=== PATIENT | male | born 1965 | race Caucasian/White ===

== ENCOUNTER → 2018-08-15 06:54 | Outpatient (CLI) | payer BC, SELFPAY ==
[2018-08-15 08:33] LABS: Absolute Lymphocyte Count 1.31 X10^3/ul (0.83-4.51); Absolute Neutrophil Count 4.7 X10^3/uL (2.0-7.7); Basophil% 0.3 % (0-1); Eosinophils% 1.3 % (0-5); Hematocrit 43.4 % (40-54); Hemoglobin 15.6 g/dl (13.0-16.5); Lymphocyte # 1.31 X10^3/ul (4.0); Lymphocyte % 19.2 % (19-41); Mean Corp Hgb Conc 35.9 g/gl (32-36); Mean Corpuscular Hgb 32.5 pg (27.0-32.0); Mean Corpuscular Volume 90.4 fL (80-94); Mean Platelet Vol. 9.2 fl (6.2-12.0); Monocyte# 0.67 X10^3/uL; Monocyte% 9.8 % (0-10); Neutrophil % 69.1 % (47-70); Platelet Count 206 K/mm3 (150-450); RBC Distribution Width CV 12.6 % (11.6-14.6); RBC Distribution Width SD 41.5 fl (35.1-43.9); White Blood Count 6.8 K/mm3 (4.4-11.0)
[2018-08-15 08:34] LABS: Basophil# 0.02 X10^3/uL; Eosinophil# 0.09 X10^3/uL
[2018-08-15 08:35] LABS: POSITIVE COUNT NO; POSITIVE DIFFERENTIAL NO; POSITIVE MORPHOLOGY NO
[2018-08-15 09:16] LABS: ALB/GLOB Ratio 1.1 RATIO (0.9-2.4); AST(SGOT) 27 U/L (15-37); Alanine Aminotransfer ALT/SGPT 38 U/L (16-61); Alkaline Phosphatase 76 U/L (45-117); Anion Gap 11 (5-15); BUN 9 mg/dL (7-18); Calcium,Total 8.7 mg/dL (8.5-10.1); Chloride 93 mmol/L (98-107); Cholesterol 171 mg/dL (200); EST Glomerular Filtration Rate 93 mL/min (>60); Est Glom Filt Rate - Afr Amer 113 mL/min (>60); Globulin 3.7 g/dL (2.2-4.2); Glucose 81 mg/dL (74-106); High Density Lipoprotein 47 mg/dL; PSA,Total - Annual Screen 1.43 ng/mL (0.00-4.00); Potassium 4.6 mmol/L (3.5-5.1); Protein, Total 7.7 g/dL (6.4-8.2); Sodium Level 130 mmol/L (136-145); Triglycerides 104 mg/dL; Very Low Density Lipoprotein 21 mg/dL (5-40)
== END ==
PROVIDERS: Family Provider Family Medicine; PCP Family Medicine; Referring Provider Family Medicine; Visit Provider Family Medicine
DX: Z00.01 Encounter for general adult medical examination with abnormal findings (principal); Z12.5 Encounter for screening for malignant neoplasm of prostate
CPT/HCPCS: 36415; 80053; 80061; 84153; 85025; G0103

== ENCOUNTER → 2019-06-04 | Outpatient (CLI) | payer BC, SELFPAY ==
[2019-03-27 08:35] VITALS: BMI 28.4
[2019-06-04 07:02] LABS: Absolute Lymphocyte Count 1.31 X10^3/uL (0.83-4.51); Absolute Neutrophil Count 3.8 X10^3/uL (2.0-7.7); Basophil# 0.05 X10^3/uL; Basophil% 0.9 % (0-1); Eosinophil# 0.11 X10^3/uL; Eosinophils% 1.9 % (0-5); Hematocrit 45.7 % (40-54); Hemoglobin 15.7 g/dL (13.0-16.5); Lymphocyte # 1.31 X10^3/ul (4.0); Lymphocyte % 22.5 % (19-41); Mean Corp Hgb Conc 34.4 g/dL (32-36); Mean Corpuscular Hgb 31.3 pg (27.0-32.0); Mean Corpuscular Volume 91.2 fL (80-94); Mean Platelet Vol. 8.9 fl (6.2-12.0); Monocyte# 0.57 X10^3/uL; Monocyte% 9.8 % (0-10); NRBC Flagged by Analyzer 0 % (0-5); Neutrophil # 3.76 X10^3/uL (2.7-7.7); Neutrophil % 64.7 % (47-70); Platelet Count 209 K/mm3 (150-450); RBC Distribution Width CV 12.5 % (11.6-14.6); Red Blood Count 5.01 M/mm3 (4.6-6.2); White Blood Count 5.8 K/mm3 (4.4-11.0)
[2019-06-04 07:17] LABS: ALB/GLOB Ratio 1.1 RATIO (0.9-2.4); AST(SGOT) 24 U/L (15-37); Alanine Aminotransfer ALT/SGPT 39 U/L (16-61); Albumin, Serum 4.1 g/dL (3.2-5.0); Alkaline Phosphatase 77 U/L (45-117); Anion Gap 9 (5-15); BUN 9 mg/dL (7-18); BUN/Creat Ratio 8.9 RATIO (10-20); Chloride 94 mmol/L (98-107); Cholesterol 185 mg/dL (200); Creatinine, Serum 1.01 mg/dL (0.70-1.30); EST Glomerular Filtration Rate 81 mL/min (>60); Est Glom Filt Rate - Afr Amer 99 mL/min (>60); Globulin 3.7 g/dL (2.2-4.2); Glucose 99 mg/dL (74-106); High Density Lipoprotein 57 mg/dL; Potassium 4.4 mmol/L (3.5-5.1); Protein, Total 7.8 g/dL (6.4-8.2); Sodium Level 130 mmol/L (136-145); Triglycerides 125 mg/dL; Very Low Density Lipoprotein 25 mg/dL (5-40)
== END | disposition home or self-care (01) ==
LOC: LAB.FUTURE 06:35
PROVIDERS: Family Provider Family Medicine; PCP Family Medicine; Referring Provider Family Medicine; Visit Provider Family Medicine
DX: Z00.00 Encounter for general adult medical examination without abnormal findings (principal)
CPT/HCPCS: 36415; 80053; 80061; 85025

== ENCOUNTER → 2019-08-13 07:37 | Outpatient (CLI) | payer BC, SELFPAY ==
[2019-03-27 08:35] VITALS: BMI 28.4
--- NOTE | 2019-08-13 08:41 | NEURO_ITS ---
NCS and/or EMG Patient Report HPI: Patient is a 54-year-old male presented with numbness, tingling and pain in left arm and fingers. It is somewhat positional but not allways. It has been present for about a year. Patient has a history of cervical neck pain with a cervical disc replacement in 2015 for similar symptoms. He is not diabetic. Patient had cervical fusion at C5-C6 and C6-C7 in 2015. Patient also complains of left shoulder pain and feels that his left arm is weak. 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 Physical Exam: Mild tenderness at left wrist. Tinel sign slightly positive at left wrist. No significant atrophy of thenar or hypothenar muscles noted. Cervical spasm and tenderness noted on the left side> Range of motion is within normal limits at cervical spine. Mild left shoulder tenderness. ROM within normal limits at left shoulder but associated with the pain. Mild sensory deficit in left hand fingers noted. Findings: 1. There is evidence of prolongation of distal latencies of left median sensory and motor nerves responses. 2. Normal ulnar nerve conduction studies. 3. Normal needle examination of the left upper extremity including left cervical paraspinal muscles. Impression: 1. Findings are consistent with moderately severe median mononeuropathy at wrist due to carpal tunnel syndrome. 2. No electrodiagnostic evidence of cervical radiculopathy, brachial plexopathy or ulnar neuropathy in left upper extremity. Recommendation: 1. Patient recommended to wear left hand splint and avoid repetitive use of left hand as much as possible. 2. Patient may need surgical release of left carpal tunnel syndrome if symptoms continues. 3. Patient recommended to follow up with his PCP for left cervical and left shoulder pain.
== END ==
PROVIDERS: Family Provider Family Medicine; PCP Family Medicine; Referring Provider Family Medicine; Visit Provider Family Medicine
DX: R20.2 Paresthesia of skin (principal)
CPT/HCPCS: 95886; 95908

== ENCOUNTER → 2020-04-18 11:58 | Outpatient (CLI) | payer BC, SELFPAY ==
[2019-12-06 09:42] VITALS: BMI 28.4
[2020-04-18 15:02] LABS: Absolute Lymphocyte Count 1.24 X10^3/uL (0.83-4.51); Absolute Neutrophil Count 3.8 X10^3/uL (2.0-7.7); Basophil# 0.05 X10^3/uL; Basophil% 0.9 % (0-1); Eosinophil# 0.08 X10^3/uL; Eosinophils% 1.4 % (0-5); Hemoglobin 15.6 g/dL (13.0-16.5); Lymphocyte # 1.24 X10^3/ul (4.0); Lymphocyte % 21.1 % (19-41); Mean Corp Hgb Conc 34.7 g/dL (32-36); Mean Corpuscular Hgb 31.8 pg (27.0-32.0); Mean Corpuscular Volume 91.8 fL (80-94); Mean Platelet Vol. 9.1 fl (6.2-12.0); Monocyte# 0.66 X10^3/uL; Monocyte% 11.2 % (0-10); NRBC Flagged by Analyzer 0 % (0-5); Neutrophil # 3.82 X10^3/uL (2.7-7.7); Neutrophil % 65.1 % (47-70); Platelet Count 212 K/mm3 (150-450); RBC Distribution Width CV 12.9 % (11.6-14.6); White Blood Count 5.9 K/mm3 (4.4-11.0)
[2020-04-18 15:15] LABS: AST(SGOT) 18 U/L (15-37); Alanine Aminotransfer ALT/SGPT 31 U/L (16-61); Albumin, Serum 3.9 g/dL (3.2-5.0); Alkaline Phosphatase 76 U/L (45-117); Anion Gap 7 (5-15); BUN 16 mg/dL (7-18); BUN/Creat Ratio 13.2 RATIO (10-20); Calcium,Total 9.2 mg/dL (8.5-10.1); Chloride 97 mmol/L (98-107); Creatinine, Serum 1.21 mg/dL (0.70-1.30); EST Glomerular Filtration Rate 66 mL/min (>60); Est Glom Filt Rate - Afr Amer 80 mL/min (>60); Glucose 139 mg/dL (74-106); Potassium 4.3 mmol/L (3.5-5.1); Protein, Total 7.9 g/dL (6.4-8.2); Sodium Level 132 mmol/L (136-145)
== END ==
PROVIDERS: PCP Family Medicine; Visit Provider Family Medicine
DX: E87.1 Hypo-osmolality and hyponatremia (principal); I10 Essential (primary) hypertension
CPT/HCPCS: 36415; 80053; 85025

== ENCOUNTER → 2020-04-25 06:34 | Outpatient (CLI) | payer BC, SELFPAY ==
[2019-12-06 09:42] VITALS: BMI 28.4
--- NOTE | 2020-04-25 06:37 | CT_ITS ---
ACR Level 3 findings have been noted. An addendum which confirms receipt of the report will follow. STUDY: CT MAXILLOFACIAL SINUSES REASON FOR EXAM: Male, 55 years old. FAM HX OF BRAIN CANCER, CONSTANT COTTRELL, SINUS CONGESTION, HTN, CERVICAL FUSION RADIATION DOSAGE (If Supplied By Facility): CTDIvol = ( 41.01 ) mGy, DLP = ( 2447.88 ) mGycm TECHNIQUE: The patient was scanned in a multi detector CT scanner. High resolution axial imaging was performed without the administration of intravenous contrast material. Sagittal and coronal images were reconstructed. Individualized dose optimization techniques were used for this CT. COMPARISON: None. FINDINGS: FRONTAL SINUSES: Normal aeration, without mucosal inflammatory disease. ETHMOIDAL SINUSES: Normal aeration, without mucosal inflammatory disease. There is a fracture of the medial orbital wall on the right, likely chronic. MAXILLARY SINUSES: There is moderate mucosal thickening of the bilateral maxillary sinuses. Additionally there is an air-fluid level of the left maxillary sinus, consistent with acute sinus disease. SPHENOIDAL SINUSES: Normal aeration, without mucosal inflammatory disease. There is obstruction of the bilateral maxillary infundibuli with normal uncinate processes, ethmoid bullae, and hiatus semilunaris. Normal bilateral middle turbinates. Normal bilateral inferior turbinates. There is a right sided nasal septal deviation with a right sided nasal septal spur. There is patency of the bilateral nasal airways. CT/Sinus/Facial Bone IMPRESSION: Acute on chronic sinus disease. Electronically Signed: Flaco Grady MD at 12:52 EDT Tel , Service support ,
--- NOTE | 2020-04-25 06:37 | CT_ITS ---
STUDY: CT BRAIN WITH AND WITHOUT CONTRAST REASON FOR EXAM: Male, 55 years old. FAM HX OF BRAIN CANCER, CONSTANT COTTRELL, SINUS CONGESTION, HTN, CERVICAL FUSION RADIATION DOSAGE (If Supplied By Facility): CTDIvol = ( 41.01 ) mGy, DLP = ( 2447.88 ) mGycm TECHNIQUE: Transaxial CT imaging of the brain was performed pre and post contrast administration. The examination was performed with intravenous administration of IV 50mL Isovue-370. Individualized dose optimization techniques were used for this CT. COMPARISON: None. FINDINGS: Normal soft tissue structures. Normal calvarium. Normal size ventricles and extra-axial spaces for the patient''s age. Normal white matter tracts of the cerebral hemispheres. Normal basal ganglia and thalami. Normal brainstem. Normal cerebellum. There is no intracranial hemorrhage. There are no findings of an acute ischemic infarction. There is moderate paranasal sinus disease. Please see dedicated CT of the sinuses. CT/Brain/Head W/WO Contrast IMPRESSION: Unremarkable unenhanced and enhanced CT scan of the brain. Electronically Signed: Flaco Grady MD at 12:43 EDT Tel , Service support ,
== END ==
PROVIDERS: PCP Family Medicine; Referring Provider Family Medicine; Visit Provider Family Medicine
DX: R51 Headache (principal); R55 Syncope and collapse; J32.9 Chronic sinusitis, unspecified; H53.8 Other visual disturbances
CPT/HCPCS: 70470; 70486; Q9967

== ENCOUNTER → 2020-07-28 05:56 | Outpatient (CLI) | payer BC, SELFPAY ==
[2020-07-11 08:00] VITALS: BMI 28.4
[2020-07-28 07:22] LABS: Absolute Lymphocyte Count 0.96 X10^3/uL (0.83-4.51); Absolute Neutrophil Count 5.3 X10^3/uL (2.0-7.7); Basophil# 0.03 X10^3/uL; Basophil% 0.4 % (0-1); Eosinophil# 0.08 X10^3/uL; Eosinophils% 1.1 % (0-5); Hematocrit 45.5 % (40-54); Hemoglobin 15.6 g/dL (13.0-16.5); Lymphocyte # 0.96 X10^3/ul (4.0); Lymphocyte % 13.5 % (19-41); Mean Corp Hgb Conc 34.3 g/dL (32-36); Mean Corpuscular Hgb 32.3 pg (27.0-32.0); Mean Corpuscular Volume 94.2 fL (80-94); Mean Platelet Vol. 9.2 fl (6.2-12.0); Monocyte# 0.75 X10^3/uL; Monocyte% 10.5 % (0-10); NRBC Flagged by Analyzer 0 % (0-5); Neutrophil # 5.28 X10^3/uL (2.7-7.7); Neutrophil % 74.2 % (47-70); Platelet Count 174 K/mm3 (150-450); RBC Distribution Width CV 12.6 % (11.6-14.6); RBC Distribution Width SD 43.8 fl (35.1-43.9); Red Blood Count 4.83 M/mm3 (4.6-6.2); White Blood Count 7.1 K/mm3 (4.4-11.0)
[2020-07-28 07:39] LABS: Hemoglobin A1c 5.4 % (3.8-5.6)
[2020-07-28 08:07] LABS: ALB/GLOB Ratio 0.9 RATIO (0.9-2.4); AST(SGOT) 26 U/L (15-37); Alanine Aminotransfer ALT/SGPT 31 U/L (16-61); Albumin, Serum 3.8 g/dL (3.2-5.0); Alkaline Phosphatase 69 U/L (45-117); Anion Gap 5 (5-15); BUN 12 mg/dL (7-18); BUN/Creat Ratio 10.8 RATIO (10-20); Calcium,Total 9.1 mg/dL (8.5-10.1); Chloride 95 mmol/L (98-107); Cholesterol 219 mg/dL (200); Creatinine, Serum 1.11 mg/dL (0.70-1.30); EST Glomerular Filtration Rate 73 mL/min (>60); Est Glom Filt Rate - Afr Amer 88 mL/min (>60); Globulin 4.1 g/dL (2.2-4.2); Glucose 98 mg/dL (74-106); High Density Lipoprotein 70 mg/dL; PSA,Total - Annual Screen 0.94 ng/mL (0.00-4.00); Potassium 4.4 mmol/L (3.5-5.1); Protein, Total 7.9 g/dL (6.4-8.2); Sodium Level 129 mmol/L (136-145); Thyroid Stim Hormone (TSH) 1.02 uIU/mL (0.358-3.74); Triglycerides 119 mg/dL; Very Low Density Lipoprotein 24 mg/dL (5-40)
== END ==
PROVIDERS: PCP Family Medicine; Referring Provider Family Medicine; Visit Provider Family Medicine
DX: Z00.00 Encounter for general adult medical examination without abnormal findings (principal); E78.1 Pure hyperglyceridemia; Z12.5 Encounter for screening for malignant neoplasm of prostate
CPT/HCPCS: 36415; 80053; 80061; 83036; 84153; 84443; 85025; G0103

== ENCOUNTER 2020-08-13 22:05 | Inpatient (IN) | payer BC, SELFPAY ==
[2020-07-11 08:00] VITALS: BMI 28.4
[2020-08-13 22:06] VITALS: BP 181/104; PULSE 93; RESP 15; TEMP 36.4; O2SAT 99; BMI 28.2
--- NOTE | 2020-08-13 22:06 | ED.RN ---
RN CALLED FOR EKG, PULLED OLD EKGS FOR
--- NOTE | 2020-08-13 22:10 | EKG12_ITS ---
Test Reason : CP Blood Pressure : / mmHG Vent. Rate : 095 BPM Atrial Rate : 095 BPM P-R Int : 174 ms QRS Dur : 072 ms QT Int : 336 ms P-R-T Axes : 067 082 059 degrees QTc Int : 422 ms Normal sinus rhythm Normal ECG Confirmed by KAYLIN OROPEZA, EL ([id number]), editor in chief newspaper ELLIS RESENDEZ ([id number]) on 08/15/2020 12:56:19 PM Referred By: LAST Confirmed By:EL EWING MD
--- NOTE | 2020-08-13 22:10 | RAD_ITS ---
STUDY: X-RAY CHEST REASON FOR EXAM: Male, 55 years old. Intermittent chest pain for 1 1/2 weeks. TECHNIQUE: Single AP portable view of the chest. COMPARISON: 10/24/2017. FINDINGS: The lungs are clear and expanded. There is no demonstrated pleural abnormality. Normal size heart. Normal mediastinum and anahi. Normal visualized pulmonary arteries. Normal visualized aortic arch and descending thoracic aorta. Normal visualized thoracic spine. Normal visualized ribs, clavicles, and shoulders. There is no demonstrated abnormality of the visualized soft tissue structures of the upper abdomen. RAD/Chest 1 View (Portable) IMPRESSION: Normal x-ray examination of the chest. Electronically Signed: Sujata Ventura MD at 22:59 EDT Tel , Service support ,
[2020-08-13 22:13] VITALS: O2SAT 98
[2020-08-13] MEDS: Aspirin 81 MG TAB.CHEW 324 MG PO (22:22)
[2020-08-13 22:27] LABS: Absolute Lymphocyte Count 1.69 X10^3/uL (0.83-4.51); Absolute Neutrophil Count 3.9 X10^3/uL (2.0-7.7); Basophil# 0.05 X10^3/uL; Basophil% 0.8 % (0-1); Eosinophil# 0.12 X10^3/uL; Eosinophils% 1.9 % (0-5); Hemoglobin 14.9 g/dL (13.0-16.5); Lymphocyte # 1.69 X10^3/ul (4.0); Mean Corp Hgb Conc 34.7 g/dL (32-36); Mean Corpuscular Hgb 32.3 pg (27.0-32.0); Mean Corpuscular Volume 93.3 fL (80-94); Monocyte# 0.53 X10^3/uL; Monocyte% 8.5 % (0-10); NRBC Flagged by Analyzer 0 % (0-5); Neutrophil # 3.86 X10^3/uL (2.7-7.7); Neutrophil % 61.5 % (47-70); Platelet Count 179 K/mm3 (150-450); RBC Distribution Width CV 12.6 % (11.6-14.6); RBC Distribution Width SD 43.2 fl (35.1-43.9); Red Blood Count 4.61 M/mm3 (4.6-6.2); White Blood Count 6.3 K/mm3 (4.4-11.0)
[2020-08-13 22:48] LABS: Anion Gap 10 (5-15); BUN 12 mg/dL (7-18); BUN/Creat Ratio 12.8 RATIO (10-20); Chloride 100 mmol/L (98-107); Creatinine, Serum 0.94 mg/dL (0.70-1.30); EST Glomerular Filtration Rate 89 mL/min (>60); Est Glom Filt Rate - Afr Amer 107 mL/min (>60); Estimated Creatinine Clearance 79.18 ml/min; Glucose 99 mg/dL (74-106); Potassium 3.9 mmol/L (3.5-5.1); Sodium Level 134 mmol/L (136-145)
--- NOTE | 2020-08-13 23:15 | ED.DCSUM_ITS ---
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 He reports that he has had increased dyspnea exertion over the past 3 weeks. Did not experience chest pain until 2 days ago. He had an episode while he was spl itting firewood that resolved after approximate 10 to 15 minutes rest. Patient reports at 9:00 this evening he was awakened from sleep by a burning substernal tightness with radiation into his neck and his left shoulder. Was 10 on 10 at worst and is 2 out of 10 currently. Is worsened by nothing. Is relieved by rest. He does report it made him short of breath. He denies any associated nausea, vomiting, or diaphoresis. Patient has a history of high blood pressure, tobacco use, and family history as his risk factors for coronary artery disease. He reports his last stress test was a while ago. He is never had a heart catheterization. Physical Examination: Vitals: Stable. Afebrile. General: Well-nourished and well-developed. Head: Normocephalic atraumatic. Neck: Supple, no lymphadenopathy. No JVD. Nontender. Cardiovascular: Regular rate and rhythm. No murmurs. Respiratory: No respiratory distress. Clear to auscultation bilaterally. Abdominal: Soft, nontender, nondistended, normal bowel sounds. No guarding, rebound, or peritoneal signs. Back: Nontender. Extremities: Nontender, no edema. Skin: Normal color, no rash. Neurologic: Alert and oriented ?3. Cranial nerves II through XII are intact. Normal strength and sensation. Psych: Normal affect. Test Results: EKG is sinus at [address] changes. Initial troponin 0 0.0 22. Chem-7 shows a sodium 134. CBC is normal. Clinical Impression(s) from Imaging Studies Chest X-Ray 08/13/20 22:10 IMPRESSION: Normal x-ray examination of the chest. Electronically Signed: Sujata Ventura MD at 22:59 EDT Tel , Service support , Emergency Department Course and Treatment: Patient was given aspirin p.o. He is resting comfortably and is chest pain-free at this time. Treatment Plan: Patient was discussed with Dr. Chino. He will be admitted the hospital for further evaluation and treatment. Disposition: Admitted in improved condition. Impression: 1. Chest pain. 2. SYLVIA score of 2. This note was generated with [employer] dictation software. It may contain incorrect words, spelling, and punctuation that were not noted in review of the chart prior to signing ED Disposition - Plan for ED Patient: Disposition: Acute Care Hospital [facility]
[2020-08-13 23:17] VITALS: BP 142/83; PULSE 78; RESP 18
--- NOTE | 2020-08-13 23:31 | HP.PCM_ITS ---
Problem List (1) Chest pain Status: Acute Qualifiers: Chest pain type: unspecified Qualified Code(s): R07.9 - Chest pain, unspecified (2) Tobacco use Status: Chronic (3) ETOH abuse Status: Chronic (4) COPD (chronic obstructive pulmonary disease) Status: Suspected Qualifiers: COPD type: unspecified COPD Qualified Code(s): J44.9 - Chronic obstructive pulmonary disease, unspecified (5) Hypertension Status: Chronic Qualifiers: Hypertension type: essential hypertension Qualified Code(s): I10 - Essential (primary) hypertension History of Present Illness Date of Admission: 08/13/20 Chief Complaint: Chest pain The patient is a 55 y/o M w/ PMHx: HTN, Chronic neck and back pain, Tobacco use, EtOH abuse who presents to the [facility] ED on 08/13/20 with history of ongoing intermittent chest pain x 1.5 weeks described as a burning/tightness sensation in the sternal region, worse with any exertion/increased activity prompting e ventual ED presentation in addition to exertional dyspnea and noted coming into the ED secondary to awakening secondary to chest pain on evening of day of presentation, noted to be severe 08/12 but improved upon ED presentation to 12/13. He denies any associated nausea, emesis or diaphoresis. Work-up in the ED included T 97.6, heart rate 93, BP initially 181/104 with improvement to 142/83, respiratory rate 15, 99% on room air, CBC unremarkable, BMP unremarkable aside sodium 134, troponin 0.022, chest x-ray with no acute cardiopulmonary findings, EKG with SR with nonspecific changes. In the ED patient ministered aspirin 324 mg p.o. x1. Past Medical History Past Medical History (Chronic Problems): Chronic Problems (Last Reviewed 07/11/20 @ 07:59 by Florencio Quiroga) Tobacco use (Chronic) ETOH abuse (Chronic) Hypertension (Chronic) Psoriatic arthritis (Chronic) Medical History: Medical History (Last Reviewed 07/11/20 @ 07:59 by Florencio Quiroga) Chronic neck and back pain M54.2, M54.9, G89.29 Hypertension I10 Allergies No Known Allergies Allergy (Verified 07/11/20 07:59) Home Medications: Ambulatory Orders Medication Instructions Recorded Lisinopril [Zestril] 20 mg PO DAILY 03/14/15 Surgical History: Surgical History (Last Reviewed 07/11/20 @ 07:59 by Florencio Quiroga) History of spinal surgery Z98.890 Surgical History: - - Neck surgery with anterior approach per patient description, left carpal tunnel surgery. Psychiatric History: No pertinent psych hx Lives: Spouse/ Significant Other Smoking Status: Current every day smoker - Patient with ongoing three-quarter to 1 pack/day cigarette tobacco usage since youth. Tobacco Use: Cigarettes Alcohol: Heavy - Patient with at least 6, 12 ounce beers daily. Drugs: None - *Family History Maternal History Items: Diabetes, - - Multiple sclerosis Paternal History Items: Heart Disease, Hypertension Review of Systems Constitutional: Reports: Fatigue. Denies: Anorexia, Chills, Fever, Malaise, Weakness, Weight Change HEENT: Denies: Head Aches, Sinus Congestion, Sinus Drainage Cardiovascular: Reports: Chest Pain, Chest Tightness. Denies: Chest Pressure, Light Headedness, Orthopnea, Palpitations, Syncope Respiratory: Reports: Shortness of Breath, Shortness of breath upon exertion, Wheezing. Denies: Cough, Shortness of breath at rest, Sputum production Gastrointestinal: Denies: Abdominal Pain, Nausea, Vomiting Genitourinary: Denies: Dysuria Musculoskeletal: Reports: Back Pain, Neck Pain. Denies: Joint Pain, Joint Tenderness Skin: Denies: Rash, Wounds Neurological: Denies: Numbness, Tingling, Focal weakness Psychiatric: Denies: Anxiety, Depression, Homicidal Ideations, Suicidal Ideatio ns Hematologic/ Lymphatic: Denies: Easy Bruising, Easy Bleeding VTE Information - Inpt Only VTE Present on Admission: No VTE Mechan Device Prophylaxis: SCD's VTE Pharm Prophylaxis ordered?: Yes Patient Problems: Active and Suspected Problems (Last Reviewed 07/11/20 @ 07:59 by Florencio Quiroga) COPD (chronic obstructive pulmonary disease) (Suspected) Subjective: Patient seated upright in the ED bed, notes resolution of prior chest discomfort, currently rated 0 out of 10. Objective: Physical Examination: General: awake, alert, oriented x 3 and cooperative, seated upright in the ED bed in no apparent distress, currently chest pain resolved. Skin: normal color, turgor, no icterus, cyanosis. HEENT: AT/NC, EOMI, PERRLA, MMM, no carotid bruits or JVD noted. Lungs: Diminished breath sounds, greater bases, moderate effort, end expiratory occasional wheezing noted, no obvious rales or rhonchi. Heart: Regular rate and rhythm; no gallop, rub audible. Abdomen: soft, NTTP, ND, normal BS, no HSM. Extremities: no cyanosis, clubbing, or edema. Neurological: patient awake, alert, oriented x 3; cognitive function intact; pupils equally reactive to light and accomodation; cranial nerves II-XII grossly normal, moving all 4 extremities, no focal deficits, strength mildly to moderately global decrease secondary to acute complaints. Psychiatric: affect appears fatigued otherwise normal, no acute evidence of depressive or anxiety feelings. - Physical Exam Vitals/I&O's: Vital Signs Temp Pulse Resp BP Pulse Ox 97.6 F L 78 18 142/83 H 98 08/13/20 22:06 08/13/20 23:17 08/13/20 23:17 08/13/20 23:17 08/13/20 22:13 Oxygen Flow Rate (L/min) 2 Oxygen Delivery Method Nasal Cannula Weight: 175 lb 0.752 oz Body Mass Index (BMI) 28.2 Laboratory Results 08/13/20 22:18: WBC 6.3, RBC 4.61, Hgb 14.9, Hct 43.0, MCV 93.3, MCH 32.3 H, MCHC 34.7, RDW Std Deviation 43.2, RDW Coeff of Padmini 12.6, Plt Count 179, MPV 9.0, Immature Gran % (Auto) 0.300, Neut % (Auto) 61.5, Lymph % (Auto) 27.0, [place] % (Auto) 8.5, Eos % (Auto) 1.9, Baso % (Auto) 0.8, Absolute Neuts (auto) 3.9, Absolute Lymphs (auto) 1.69, Nucleated RBC % 0 08/13/20 22:18: Sodium 134 L, Potassium 3.9, Chloride 100, Carbon Dioxide 24.0, Anion Gap 10, BUN 12, Creatinine 0.94, Estim Creat Clear Calc 79.18, Est GFR (MDRD) Af Amer 107, Est GFR (MDRD) Non-Af 89, BUN/Creatinine Ratio 12.8, Glucose 99, Calcium 9.0, Troponin I 0.022 Assessment/Plan All Active Problems (Last Reviewed 07/11/20 @ 07:59 by Florencio Quiroga) Left otitis media (Acute) Sinusitis, acute (Acute) URI (upper respiratory infection) (Acute) Chest pain (Acute) Left arm weakness (Acute) The patient is a 55 y/o M w/ PMHx: HTN, Chronic neck and back pain, Tobacco use, EtOH abuse who presents to the [facility] ED on 08/13/20 with history of ongoing intermittent chest pain x 1.5 weeks described as a burning/tightness sensation in the sternal region, worse with any exertion/increased activity prompting eventual ED presentation in addition to exertional dyspnea. 1. Chest Pain: EKG with SR with nonspecific changes, CXR w/ no acute cardiopulmonary findings, initial trop 0.022. Will admit to PCU, place on a monitored bed to assure no acute myocardial infarction with serial cardiac enzymes and EKGs. If repeat EKGs and cardiac enzyme trending remain unremarkable will pursue a.m. cardiac stress testing. Magnesium pending, FLP in AM. ASA, NG, morphine. 2. Hypertension: Initial ED presentation with elevated BP, improved, will continue home regimen including lisinopril with adjustments and additions as needed, PRN hydralazine. 3. EtOH Abuse: Patient notes routine consumption of 6 beers (12 ounce) per day. Will maintain on CIWA protocol, MVI, thiamine and folic acid. Will encourage safe sobriety with case management consultation for substance abuse education and information. UDS, EtOH level requested. 4. Chronic neck and back pain: Encourage continued outpatient follow-up. 5. Tobacco Abuse: Encouraged cessation, inpatient consultation per RT, NR if desired. 6. Suspected underlying chronic COPD: Diminished at bases, wheezing present, significant tobacco use history, discussed with patient and will placed on ATC DuoNeb therapy, PRN albuterol and recommended outpatient pulmonary function nataliia dies and follow-up with his primary care. 7. DVT prophylaxis: SCDs, Lovenox. OBSV E&M: [id number] Initial observation care L3
[2020-08-13 23:56] VITALS: BP 155/89; PULSE 87; RESP 16; TEMP 36.4
[2020-08-14] VITALS (20 sets, daily range): BP systolic 131–168; BP diastolic 68–107; PULSE 75–135; RESP 16–20; TEMP 36.3–37.1; O2SAT 94–100; BMI 27.3; BMI 27.4
--- NOTE | 2020-08-14 00:10 | EKG12_ITS ---
Test Reason : CP ADMIT Blood Pressure : / mmHG Vent. Rate : 075 BPM Atrial Rate : 075 BPM P-R Int : 168 ms QRS Dur : 074 ms QT Int : 360 ms P-R-T Axes : 075 084 062 degrees QTc Int : 402 ms Normal sinus rhythm Normal ECG When compared with ECG of 24-OCT-2017 12:14, No significant change was found Confirmed by GOMEZ OROPEZA, JOSÉ LUIS ([id number]), senior editor VENESSA PINEDA ([id number]) on 08/16/2020 11:28:44 AM Referred By: DR DUKES Confirmed By:ARNALDO DYER MD
[2020-08-14] MEDS: 0.9% Normal Saline 1,000 ML 100 ML IV ×2 (00:32→10:12)
[2020-08-14 02:21] LABS: Magnesium 2.3 mg/dL (1.6-2.6); Phosphorus 4.7 mg/dL (2.5-4.9)
[2020-08-14 04:17] LABS: Absolute Neutrophil Count 3.4 X10^3/uL (2.0-7.7); Basophil# 0.04 X10^3/uL; Basophil% 0.7 % (0-1); Eosinophil# 0.09 X10^3/uL; Eosinophils% 1.7 % (0-5); Hematocrit 42.3 % (40-54); Hemoglobin 14.3 g/dL (13.0-16.5); Lymphocyte % 24.3 % (19-41); Mean Corp Hgb Conc 33.8 g/dL (32-36); Mean Corpuscular Hgb 31.5 pg (27.0-32.0); Mean Corpuscular Volume 93.2 fL (80-94); Mean Platelet Vol. 8.9 fl (6.2-12.0); Monocyte# 0.48 X10^3/uL; NRBC Flagged by Analyzer 0 % (0-5); Neutrophil # 3.44 X10^3/uL (2.7-7.7); Neutrophil % 64.1 % (47-70); Platelet Count 162 K/mm3 (150-450); RBC Distribution Width CV 12.8 % (11.6-14.6); RBC Distribution Width SD 43.9 fl (35.1-43.9); Red Blood Count 4.54 M/mm3 (4.6-6.2); White Blood Count 5.4 K/mm3 (4.4-11.0)
[2020-08-14 04:35] LABS: AST(SGOT) 24 U/L (15-37); Alanine Aminotransfer ALT/SGPT 32 U/L (16-61); Albumin, Serum 3.6 g/dL (3.2-5.0); Alkaline Phosphatase 63 U/L (45-117); Anion Gap 6 (5-15); BUN 13 mg/dL (7-18); BUN/Creat Ratio 14.6 RATIO (10-20); Calcium,Total 8.8 mg/dL (8.5-10.1); Chloride 103 mmol/L (98-107); Cholesterol 213 mg/dL (200); Creatinine, Serum 0.89 mg/dL (0.70-1.30); EST Glomerular Filtration Rate 94 mL/min (>60); Est Glom Filt Rate - Afr Amer 114 mL/min (>60); Estimated Creatinine Clearance 83.63 ml/min; Globulin 3.5 g/dL (2.2-4.2); Glucose 115 mg/dL (74-106); High Density Lipoprotein 67 mg/dL; Potassium 4.4 mmol/L (3.5-5.1); Protein, Total 7.1 g/dL (6.4-8.2); Sodium Level 133 mmol/L (136-145); Triglycerides 160 mg/dL; Very Low Density Lipoprotein 32 mg/dL (5-40)
[2020-08-14 04:39] LABS: Amphetamine Urine VISTA NEGATIVE (<1000 ng/mL); Barbiturate Urine VISTA NEGATIVE (< 200 ng/mL); Benzodiazepine Urine VISTA NEGATIVE (< 200 ng/mL); Cocaine Urine VISTA NEGATIVE (< 300 ng/mL); Ecstacy Urine VISTA NEGATIVE (< 500 ng/mL); Methadone Urine VISTA NEGATIVE (< 300 ng/mL); PCP Urine VISTA NEGATIVE (< 25 ng/mL); THC Urine VISTA NEGATIVE (< 50 ng/mL); Vista UDS pH Range 6
--- NOTE | 2020-08-14 04:47 | ECHOD_ITS ---
Reason For Study: ARRHYTHMIA Procedure This was a 2D Doppler, Color Flow transthoracic echocardiogram. Exam performed portable in patient room. Left Ventricle Normal LV size. The estimated ejection fraction is 60 %. No evidence for diastolic dysfunction. No regional wall motion abnormalities noted. Right Ventricle Normal RV size. Normal systolic function. Atria Normal left atrium. Normal right atrium. No doppler evidence for ASD. Mitral Valve There is no mitral valve stenosis. Trivial mitral valve insufficiency. Tricuspid Valve There is no tricuspid stenosis. Trivial tricuspid valve insufficiency. Unable to estimate RV systolic pressure due to insufficient tricuspid regurgitant envelope. Aortic Valve Trisinus/trileaflet aortic valve. There is no aortic stenosis. No aortic valve insufficiency. Pulmonic Valve There is no pulmonic valvular stenosis. No pulmonic valve insufficiency. Great Vessels Normal aortic root. Pericardium/Pleural No pericardial effusion. MMode/2D Measurements & Calculations LVIDd: 4.3 cm IVSd: 1.1 cm Ao root diam: 3.4 cm LVIDs: 3.0 cm LVPWd: 1.1 cm RVDd: 3.0 cm FS: 30.2 % LAV(MOD-bp): 30.7 ml LVAd ap4: 26.7 cm2 SV(MOD-sp4): 47.6 ml LAV(MOD-bp) Indexed: 16.5 ml/m2 EDV(MOD-sp4): 75.9 ml LAV(MOD-sp2): 26.4 ml EDV(sp4-el): 79.0 ml LAV(MOD-sp4): 29.1 ml LVAs ap4: 14.9 cm2 ESV(MOD-sp4): 28.3 ml ESV(sp4-el): 29.4 ml EF(MOD-sp4): 62.8 % EF(sp4-el): 62.7 % SV(sp4-el): 49.5 ml LA A4 area: 13.0 cm2 RA A4 area: 14.4 cm2 Time Measurements MV dec time: 0.18 sec Doppler Measurements & Calculations MV E max william: 83.1 cm/sec Lat Peak E' William: 10.8 cm/sec Med Peak E' William: 9.2 cm/sec MV A max william: 92.2 cm/sec E/E' lat: 7.7 E/E' med: 9.1 MV E/A: 0.90 Ao V2 max: 111.5 cm/sec LV V1 max: 99.6 cm/sec PA V2 max: 71.1 cm/sec Ao max P.0 mmHg LV V1 max P.0 mmHg Interpretation Summary The estimated ejection fraction is 60 %. No evidence for diastolic dysfunction. Trivial mitral valve insufficiency. Ordering Physician: Chapis Chino Referring Physician: NIMA PHAN Performed By: Jena Kumari RDCS
[2020-08-14] MEDS: Aspirin E.C. 81 MG Tablet PO (06:12)
[2020-08-14] MEDS: Lisinopril 20 MG Tablet PO (06:12)
[2020-08-14 06:34] LABS: Partial Thromboplast Time 24.6 Seconds (24.1-36.2); Prothrombin Time (Protime)PT. 12.1 SECONDS (11.7-14.9)
[2020-08-14] MEDS: Enoxaparin 80 MG/0.8 ML Syringe SC (06:43)
[2020-08-14] MEDS: Ipratropium/Albuterol Sulfate 3 ML AMPUL.NEB INHALATION ×2 (07:09→19:41)
[2020-08-14] MEDS: Multivitamins,Ther W-Minerals Tablet 1 TABLET PO (09:13)
[2020-08-14] MEDS: Thiamine Hydrochloride 100 MG Tablet PO ×2 (09:13→17:10)
[2020-08-14] MEDS: Folic Acid 1 MG Tablet PO (09:13)
[2020-08-14] MEDS: Famotidine 20 MG Tablet PO ×2 (09:14→22:16)
--- NOTE | 2020-08-14 11:20 | CASEMGMT ---
SW met with patient as a referral was received for ETOH resources. SW introduced self and role at [facility]. He denied needing any resources for his alcohol consumption. Odalis REYNOLDS MSW
--- NOTE | 2020-08-14 13:17 | PN_ITS ---
<Maite Magallon REGIONAL EDUCATION COORDINATOR - Last Filed: 08/14/20 13:30> Patient Problems: Active and Suspected Problems (Last Reviewed 07/11/20 @ 07:59 by Florencio Quiroga) COPD (chronic obstructive pulmonary disease) (Suspected) Subjective: Patient seen and examined. Denies chest pain currently. States over the past couple months he has had shortness of breath and increased fatigue with activity. Plan for heart cath later today. Patient agreeable to plan. - Physical Exam Vitals/I&O's: Vital Signs Temp Pulse Resp BP Pulse Ox 98.6 F 88 20 H 153/86 H 94 08/14/20 06:07 08/14/20 07:09 08/14/20 07:09 08/14/20 06:07 08/14/20 07:09 Oxygen Flow Rate (L/min) 2 Oxygen Delivery Method Room Air Weight: 169 lb 12.095 oz Body Mass Index (BMI) 27.3 Intake and Output for Last 24 Hours 08/12/20 08/13/20 08/14/20 23:59 23:59 23:59 Intake Total 986.67 / 986.67 Balance 986.67 / 986.67 General: Alert, Oriented x3, Cooperative HEENT: Atraumatic, PERRLA, EOMI, Normocephalic Neck: Supple, No JVD, Negative Carotid Bruits Lungs: Clear to auscultation, Normal air movement Cardiovascular: Regular rate, No murmurs Abdomen: Bowel Sounds Present, Soft, Non Tender, Non-Distended Extremities: No clubbing, No cyanosis, No edema, Capillary Refill Less than 3 Seconds Skin: No rashes, No breakdown Musculoskeletal: No Tenderness to Palpation of Joints or Extremities Neurological: Cranial nerves II-XII grossly intact, Neuro grossly intact Psych/Mental Status: Normal Affect, Appropriate Laboratory Results 08/13/20 22:18: WBC 6.3, RBC 4.61, Hgb 14.9, Hct 43.0, MCV 93.3, MCH 32.3 H, MCHC 34.7, RDW Std Deviation 43.2, RDW Coeff of Padmini 12.6, Plt Count 179, MPV 9.0, Immature Gran % (Auto) 0.300, Neut % (Auto) 61.5, Lymph % (Auto) 27.0, Bonner % (Auto) 8.5, Eos % (Auto) 1.9, Baso % (Auto) 0.8, Absolute Neuts (auto) 3.9, Absolute Lymphs (auto) 1.69, Nucleated RBC % 0 08/13/20 22:18: Sodium 134 L, Potassium 3.9, Chloride 100, Carbon Dioxide 24.0, Anion Gap 10, BUN 12, Creatinine 0.94, Estim Creat Clear Calc 79.18, Est GFR (MDRD) Af Amer 107, Est GFR (MDRD) Non-Af 89, BUN/Creatinine Ratio 12.8, Glucose 99, Calcium 9.0, Troponin I 0.022 08/14/20 01:17: Phosphorus 4.7, Magnesium 2.3 08/14/20 01:17: Ethyl Alcohol 5.0 08/14/20 01:17: Troponin I 0.120 H 08/14/20 04:02: WBC 5.4, RBC 4.54 L, Hgb 14.3, Hct 42.3, MCV 93.2, MCH 31.5, MCHC 33.8, RDW Std Deviation 43.9, RDW Coeff of Padmini 12.8, Plt Count 162, MPV 8.9, Immature Gran % (Auto) 0.200, Neut % (Auto) 64.1, Lymph % (Auto) 24.3, Bonner % (Auto) 9.0, Eos % (Auto) 1.7, Baso % (Auto) 0.7, Absolute Neuts (auto) 3.4, Absolute Lymphs (auto) 1.30, Nucleated RBC % 0 08/14/20 04:02: Sodium 133 L, Potassium 4.4, Chloride 103, Carbon Dioxide 24.0, Anion Gap 6, BUN 13, Creatinine 0.89, Estim Creat Clear Calc 83.63, Est GFR (MDRD) Af Amer 114, Est GFR (MDRD) Non-Af 94, BUN/Creatinine Ratio 14.6, Glucose 115 H, Calcium 8.8, Total Bilirubin 0.40, AST 24, ALT 32, Alkaline Phosphatase 63, Troponin I 0.172 H, Total Protein 7.1, Albumin 3.6, Globulin 3.5, Albumin/Globulin Ratio 1.0, Triglycerides 160, Cholesterol 213 H, LDL Cholesterol 114, VLDL Cholesterol 32, HDL Cholesterol 67 08/14/20 04:19: Urine Opiates Screen NEGATIVE, Urine Methadone Screen NEGATIVE, Ur Barbiturates Screen NEGATIVE, Ur Phencyclidine Scrn NEGATIVE, Ur Amphetamines Screen NEGATIVE, U Methamphetamin-MDMA NEGATIVE, U Benzodiazepines Scrn NEGATIVE, Urine Cocaine Screen NEGATIVE, U Cannabinoids Screen NEGATIVE, Ur Drug Screen Comment 08/14/20 06:05: PT 12.1, INR 1.0, APTT 24.6 08/14/20 06:05: Troponin I 0.202 H Current Medications Acetaminophen (Tylenol) 650 mg PO Q6H PRN PRN PRN Reason: Pain Score 1-10/Temp > 100.7 F Al Hydroxide/Mg Hydroxide (Mylanta Ii) 30 ml PO Q6H PRN PRN PRN Reason: Gastric Burning Albuterol Sulfate (Ventolin Aerosols) 2.5 mg INHALATION Q2H PRN PRN PRN Reason: Dyspnea, wheezing Albuterol/Ipratropium (Duoneb) 3 ml INHALATION Q6HWA.RT [facility] Last Admin: 08/14/20 07:09 Dose: 3 ml Documented by: Aspirin (Ecotrin) 81 mg PO DAILY@0800 [facility] Last Admin: 08/14/20 06:12 Dose: 81 mg Documented by: Enoxaparin Sodium (Lovenox) 80 mg SC Q12@0600,1800 [facility] Last Admin: 08/14/20 06:43 Dose: 80 mg Documented by: Famotidine (Pepcid) 20 mg PO BID [facility] Last Admin: 08/14/20 09:14 Dose: 20 mg Documented by: Folic Acid (Folic Acid) 1 mg PO DAILY@0800 [facility] Stop: 08/16/20 08:01 Last Admin: 08/14/20 09:13 Dose: 1 mg Documented by: Guaifenesin (Robitussin) 20 ml PO Q4H PRN PRN PRN Reason: COUGH Sodium Chloride () 1,000 mls @ 100 mls/hr IV .Q10H [facility] Last Admin: 08/14/20 10:12 Dose: 100 mls/hr Documented by: Lisinopril (Zestril) 20 mg PO DAILY [facility] Last Admin: 08/14/20 06:12 Dose: 20 mg Documented by: Lorazepam (Ativan) 2 mg PO Q2H PRN PRN; Protocol PRN Reason: CIWA score > 8 but <15 Lorazepam (Ativan) 2 mg PO UD PRN; Protocol PRN Reason: CIWA score >/=15. Lorazepam (Ativan) 2 mg IV Q2H PRN PRN; Protocol PRN Reason: CIWA score > 8 but <15 Lorazepam (Ativan) 2 mg IV UD PRN; Protocol PRN Reason: CIWA score >/=15. Magnesium Hydroxide (Milk Of Magnesia) 30 ml PO DAILY PRN PRN PRN Reason: Constipation Morphine Sulfate () 2 mg IV Q3H PRN PRN PRN Reason: Pain Score 6-10 Multivitamins/Minerals (Multivitamin With Minerals ([facility])) [facility] Last Admin: 08/14/20 09:13 Dose: 1 tablet Documented by: Nitroglycerin (Nitrostat) 0.4 mg SUBLINGUAL Q5M PRN PRN Reason: CARDIAC/CHEST PAIN Ondansetron HCl (Zofran) 4 mg IV Q8H PRN PRN PRN Reason: NAUSEA/VOMITING Oxycodone HCl (Oxyir) 5 mg PO Q4H PRN PRN PRN Reason: Pain Score 4-5 Prochlorperazine Edisylate (Compazine Iv) 5 mg IV Q4H PRN PRN PRN Reason: Breakthrough Nausea/Vomiting Psyllium Hydrophilic Mucilloid (Metamucil) 1 packet PO DAILY PRN PRN PRN Reason: Constipation Senna/Docusate Sodium (Senokot-S, Martina-Colace) 2 tablet PO BID PRN PRN PRN Reason: Constipation Sodium Chloride () 10 - 40 ml IV UD PRN PRN Reason: SALINE FLUSH Temazepam (Restoril) 15 mg PO QHS PRN PRN PRN Reason: INSOMNIA Thiamine [facility] ([facility]amin B1) [facility] Stop: 08/16/20 17:01 Last Admin: 08/14/20 09:13 Dose: 100 mg Documented by: Throat Lozenges (Cepacol Sore Throat Lozenge) 1 lozenge MUCOUS MEM Q2H PRN PRN PRN Reason: SORE THROAT Medical Necessity - Tobacco Use Smoking Status: Current every day smoker Tobacco Use: Cigarettes Assessment/Plan All Active Problems (Last Reviewed 07/11/20 @ 07:59 by Florencio Quiroga) Left otitis media (Acute) Sinusitis, acute (Acute) URI (upper respiratory infection) (Acute) Chest pain (Acute) Left arm weakness (Acute) 1. Chest pain, abnormal troponin-cardiology consulted. Underwent heart cath with stent placement, cath report pending. Continue aspirin, Brilinta, initiated on statin. 2. Hypertension-stable, continue lisinopril regimen. 3. Tobacco dependence- encouraged cessation. 4. Suspected underlying COPD-given extensive tobacco use history. Recommend outpatient follow-up for pulmonary function test. 5. Alcohol dependence- CIWA, multivitamin, thiamine, folic acid supplementation. Patient declines [employer] consult. DVT prophylaxis-Lovenox This patient was seen by GEETA Valencia under the supervision of Dr. Ramirez. <Katerine Ramirez - Last Filed: 08/14/20 15:08> - Physical Exam Vitals/I&O's: Vital Signs Temp Pulse Resp BP Pulse Ox 98.8 F 91 18 146/101 H 97 08/14/20 13:58 08/14/20 13:58 08/14/20 13:58 08/14/20 13:58 08/14/20 13:58 Oxygen Flow Rate (L/min) 2 Oxygen Delivery Method Room Air Weight: 77 kg Body Mass Index (BMI) 27.3 Intake and Output for Last 24 Hours 08/12/20 08/13/20 08/14/20 23:59 23:59 23:59 Intake Total 986.67 / 986.67 Balance 986.67 / 986.67 Laboratory Results 08/13/20 22:18: WBC 6.3, RBC 4.61, Hgb 14.9, Hct 43.0, MCV 93.3, MCH 32.3 H, MCHC 34.7, RDW Std Deviation 43.2, RDW Coeff of Padmini 12.6, Plt Count 179, MPV 9.0, Immature Gran % (Auto) 0.300, Neut % (Auto) 61.5, Lymph % (Auto) 27.0, Bonner % (Auto) 8.5, Eos % (Auto) 1.9, Baso % (Auto) 0.8, Absolute Neuts (auto) 3.9, Absolute Lymphs (auto) 1.69, Nucleated RBC % 0 08/13/20 22:18: Sodium 134 L, Potassium 3.9, Chloride 100, Carbon Dioxide 24.0, Anion Gap 10, BUN 12, Creatinine 0.94, Estim Creat Clear Calc 79.18, Est GFR (MDRD) Af Amer 107, Est GFR (MDRD) Non-Af 89, BUN/Creatinine Ratio 12.8, Glucose 99, Calcium 9.0, Troponin I 0.022 08/14/20 01:17: Phosphorus 4.7, Magnesium 2.3 08/14/20 01:17: Ethyl Alcohol 5.0 08/14/20 01:17: Troponin I 0.120 H 08/14/20 04:02: WBC 5.4, RBC 4.54 L, Hgb 14.3, Hct 42.3, MCV 93.2, MCH 31.5, MCHC 33.8, RDW Std Deviation 43.9, RDW Coeff of Padmini 12.8, Plt Count 162, MPV 8.9, Immature Gran % (Auto) 0.200, Neut % (Auto) 64.1, Lymph % (Auto) 24.3, Bonner % (Auto) 9.0, Eos % (Auto) 1.7, Baso % (Auto) 0.7, Absolute Neuts (auto) 3.4, Absolute Lymphs (auto) 1.30, Nucleated RBC % 0 08/14/20 04:02: Sodium 133 L, Potassium 4.4, Chloride 103, Carbon Dioxide 24.0, Anion Gap 6, BUN 13, Creatinine 0.89, Estim Creat Clear Calc 83.63, Est GFR (MDRD) Af Amer 114, Est GFR (MDRD) Non-Af 94, BUN/Creatinine Ratio 14.6, Glucose 115 H, Calcium 8.8, Total Bilirubin 0.40, AST 24, ALT 32, Alkaline Phosphatase 63, Troponin I 0.172 H, Total Protein 7.1, Albumin 3.6, Globulin 3.5, Albumin/Globulin Ratio 1.0, Triglycerides 160, Cholesterol 213 H, LDL Cholesterol 114, VLDL Cholesterol 32, HDL Cholesterol 67 08/14/20 04:19: Urine Opiates Screen NEGATIVE, Urine Methadone Screen NEGATIVE, Ur Barbiturates Screen NEGATIVE, Ur Phencyclidine Scrn NEGATIVE, Ur Amphetamines Screen NEGATIVE, U Methamphetamin-MDMA NEGATIVE, U Benzodiazepines Scrn NEGATIVE, Urine Cocaine Screen NEGATIVE, U Cannabinoids Screen NEGATIVE, Ur Drug Screen Comment 08/14/20 06:05: PT 12.1, INR 1.0, APTT 24.6 08/14/20 06:05: Troponin I 0.202 H Current Medications Acetaminophen (Tylenol) 650 mg PO Q6H PRN PRN PRN Reason: Pain Score 1-10/Temp > 100.7 F Al Hydroxide/Mg Hydroxide (Mylanta Ii) 30 ml PO Q6H PRN PRN PRN Reason: Gastric Burning Albuterol Sulfate (Ventolin Aerosols) 2.5 mg INHALATION Q2H PRN PRN PRN Reason: Dyspnea, wheezing Albuterol/Ipratropium (Duoneb) 3 ml INHALATION Q6HWA.RT [facility] Last Admin: 08/14/20 07:09 Dose: 3 ml Documented by: Aspirin (Ecotrin) 81 mg PO DAILY@0800 [facility] Last Admin: 08/14/20 06:12 Dose: 81 mg Documented by: Atorvastatin Calcium (Lipitor) 20 mg PO QHS [facility] Atropine Sulfate () 0.5 mg IV UD PRN PRN Reason: HR <50 bpm Famotidine (Pepcid) 20 mg PO BID [facility] Last Admin: 08/14/20 09:14 Dose: 20 mg Documented by: Folic Acid (Folic Acid) 1 mg PO DAILY@0800 [facility] Stop: 08/16/20 08:01 Last Admin: 08/14/20 09:13 Dose: 1 mg Documented by: Guaifenesin (Robitussin) 20 ml PO Q4H PRN PRN PRN Reason: COUGH Heparin Sodium (Beef Lung) (Heparin 500 Unit/5 Ml (100/Ml)) 500 unit IV UD PRN PRN Reason: HEPARIN FLUSH Sodium Chloride () 1,000 mls @ 100 mls/hr IV .Q10H [facility] Last Admin: 08/14/20 10:12 Dose: 100 mls/hr Documented by: Sodium Chloride () 1,000 mls @ 60 mls/hr IV .[id number] [facility] Last Admin: 08/14/20 13:56 Dose: 60 mls/hr Documented by: Labetalol HCl (Trandate) 5 mg IV X1 PRN PRN Reason: SBP >160 when pulling sheath Stop: 08/16/20 13:28 Lisinopril (Zestril) 20 mg PO DAILY [facility] Last Admin: 08/14/20 06:12 Dose: 20 mg Documented by: Lorazepam (Ativan) 2 mg PO Q2H PRN PRN; Protocol PRN Reason: CIWA score > 8 but <15 Lorazepam (Ativan) 2 mg PO UD PRN; Protocol PRN Reason: CIWA score >/=15. Lorazepam (Ativan) 2 mg IV Q2H PRN PRN; Protocol PRN Reason: CIWA score > 8 but <15 Lorazepam (Ativan) 2 mg IV UD PRN; Protocol PRN Reason: CIWA score >/=15. Magnesium Hydroxide (Milk Of Magnesia) 30 ml PO DAILY PRN PRN PRN Reason: Constipation Morphine Sulfate () 2 mg IV Q3H PRN PRN PRN Reason: Pain Score 6-10 Multivitamins/Minerals (Multivitamin With Minerals (Bkc)) [facility] Last Admin: 08/14/20 09:13 Dose: 1 tablet Documented by: Nitroglycerin (Nitrostat) 0.4 mg SUBLINGUAL Q5M PRN PRN Reason: CARDIAC/CHEST PAIN Ondansetron HCl (Zofran) 4 mg IV Q8H PRN PRN PRN Reason: NAUSEA/VOMITING Oxycodone HCl (Oxyir) 5 mg PO Q4H PRN PRN PRN Reason: Pain Score 4-5 Prochlorperazine Edisylate (Compazine Iv) 5 mg IV Q4H PRN PRN PRN Reason: Breakthrough Nausea/Vomiting Psyllium Hydrophilic Mucilloid (Metamucil) 1 packet PO DAILY PRN PRN PRN Reason: Constipation Senna/Docusate Sodium (Senokot-S, Martina-Colace) 2 tablet PO BID PRN PRN PRN Reason: Constipation Sodium Chloride () 10 - 40 ml IV UD PRN PRN Reason: SALINE FLUSH Sodium Chloride () 500 ml IV BOLUS PRN PRN Reason: VASO-VAGAL PROTOCOL Temazepam (Restoril) 15 mg PO QHS PRN PRN PRN Reason: INSOMNIA Thiamine HCl (Vitamin B1) [facility] Stop: 08/16/20 17:01 Last Admin: 08/14/20 09:13 Dose: 100 mg Documented by: Throat Lozenges (Cepacol Sore Throat Lozenge) 1 lozenge MUCOUS MEM Q2H PRN PRN PRN Reason: SORE THROAT Ticagrelor (Brilinta) 90 mg PO BID MG Assessment/Plan This patient was seen in conjunction with Maite Magallon NP. I have independently interviewed and examined the patient and reviewed pertinent his torical, laboratory, and other data. Please refer to her note for patient's presentation, findings, and recommendations. Patient was seen and examined. He denied any chest pain. His troponins peaked at 0.202. Cardiology was consulted. Patient underwent cardiac catheterization with stent placed in the left circumflex. No acute events overnight. Vitals were reviewed -stable Physical Exam: Gen: Comfortable, not pale, not jaundiced, alert oriented x3 CVS:HS I +II, regular, no murmurs RESP: Diminished at lung bases GI: BS present and normal, nontender, no palpable organs EXT:No edema Labs reviewed: ASSESSMENT: 1. Chest pain, atypical 2. Hypertension 3. Nicotine dependence 4. Alcohol dependence Meds reviewed Plan: Continue per cardiology recommendations Continue to monitor for alcohol and nicotine withdrawal Inpatient E&M: [id number] [facility] Hosp L3
--- NOTE | 2020-08-14 13:30 | EKG12_ITS ---
Test Reason : AM EKG Blood Pressure : / mmHG Vent. Rate : 071 BPM Atrial Rate : 071 BPM P-R Int : 160 ms QRS Dur : 070 ms QT Int : 382 ms P-R-T Axes : 069 075 053 degrees QTc Int : 415 ms Normal sinus rhythm Normal ECG Confirmed by KAYLIN OROPEZA, EL ([id number]), supervising editor trailer VENESSA PINEDA ([id number]) on 08/17/2020 10:21:04 AM Referred By: PETER Confirmed By:EL EWING MD
[2020-08-14] MEDS: 0.9% Normal Saline 1,000 ML 60 ML IV (13:56)
--- NOTE | 2020-08-14 14:35 | PCM.CONS.C ---
Reason for Consult Date of Consultation: 08/14/20 Reason for Consultation: chest pain History of Present Illness: The patient is a 55 y/o M w/ PMHx: HTN, Chronic neck and back pain, Tobacco use, EtOH abuse who presents to the [facility] ED on 08/13/20 with history of ongoing intermittent chest pain x 1.5 weeks described as a burning/tightness sensation in the sternal region, worse with any exertion/increased activity prompting eventual ED presentation in addition to exertional dyspnea and noted coming into the ED secondary to awakening secondary to chest pain on evening of day of presentation, noted to be severe 08/12 but improved upon ED presentation to 12/13. He denies any associated nausea, emesis or diaphoresis. Work-up in the ED included T 97.6, heart rate 93, BP initially 181/104 with improvement to 142/83, respiratory rate 15, 99% on room air, CBC unremarkable, BMP unremarkable aside sodium 134, troponin 0.022. ROS: All systems reviewed. All else is negative except that in the HPI. Past Medical History Allergies/Adverse Reactions: Allergies No Known Allergies Allergy (Verified 07/11/20 07:59) Home Medications: Ambulatory Orders Medication Instructions Recorded Lisinopril [Zestril] 20 mg PO DAILY 03/14/15 Past Medical History (Chronic Problems): Chronic Problems (Last Reviewed 07/11/20 @ 07:59 by Florencio Quiroga) Tobacco use (Chronic) ETOH abuse (Chronic) Hypertension (Chronic) Psoriatic arthritis (Chronic) Surgical History: - - Neck surgery with anterior approach per patient description, left carpal tunnel surgery. Psychiatric History: No pertinent psych hx - *Family History Maternal History Items: Diabetes, - - Multiple sclerosis Paternal History Items: Heart Disease, Hypertension Lives: Spouse/ Significant Other Smoking Status: Current every day smoker Tobacco Use: Cigarettes Alcohol: Heavy - Patient with at least 6, 12 ounce beers daily. Drugs: None Objective: Vital Signs Temp Pulse Resp BP Pulse Ox 98.1 F 80 18 167/82 H 98 08/14/20 14:15 08/14/20 14:15 08/14/20 14:15 08/14/20 14:15 08/14/20 14:15 Oxygen Flow Rate (L/min) 2 Oxygen Delivery Method Room Air Weight: 169 lb 12.095 oz Body Mass Index (BMI) 27.3 Intake and Output for Last 24 Hours 08/12/20 08/13/20 08/14/20 23:59 23:59 23:59 Intake Total 986.67 / 986.67 Balance 986.67 / 986.67 General: Awake, Alert, Oriented x 3 HEENT: Atraumatic Oral: Moist Mucosa Neck: Supple Cardiovascular: Regular Rhythm Abdomen: Soft Extremities: No edema Skin: No Rashes Psych/Mental Status: Appropriate 08/13/20 22:18: WBC 6.3, RBC 4.61, Hgb 14.9, Hct 43.0, MCV 93.3, MCH 32.3 H, MCHC 34.7, Plt Count 179, MPV 9.0, Immature Gran % (Auto) 0.300, Neut % (Auto) 61.5, Lymph % (Auto) 27.0, Rock % (Auto) 8.5, Eos % (Auto) 1.9, Baso % (Auto) 0.8, Absolute Neuts (auto) 3.9, Nucleated RBC % 0 08/13/20 22:18: Sodium 134 L, Potassium 3.9, Chloride 100, Carbon Dioxide 24.0, Anion Gap 10, BUN 12, Creatinine 0.94, Est GFR (MDRD) Af Amer 107, Est GFR (MDRD) Non-Af 89, BUN/Creatinine Ratio 12.8, Glucose 99, Calcium 9.0, Troponin I 0.022 08/14/20 01:17: Phosphorus 4.7, Magnesium 2.3 08/14/20 01:17: Troponin I 0.120 H 08/14/20 04:02: WBC 5.4, RBC 4.54 L, Hgb 14.3, Hct 42.3, MCV 93.2, MCH 31.5, MCHC 33.8, Plt Count 162, MPV 8.9, Immature Gran % (Auto) 0.200, Neut % (Auto) 64.1, Lymph % (Auto) 24.3, Rock % (Auto) 9.0, Eos % (Auto) 1.7, Baso % (Auto) 0.7, Absolute Neuts (auto) 3.4, Nucleated RBC % 0 08/14/20 04:02: Sodium 133 L, Potassium 4.4, Chloride 103, Carbon Dioxide 24.0, Anion Gap 6, BUN 13, Creatinine 0.89, Est GFR (MDRD) Af Amer 114, Est GFR (MDRD) Non-Af 94, BUN/Creatinine Ratio 14.6, Glucose 115 H, Calcium 8.8, Total Bilirubin 0.40, Troponin I 0.172 H, Triglycerides 160, Cholesterol 213 H, LDL Cholesterol 114, VLDL Cholesterol 32, HDL Cholesterol 67 08/14/20 06:05: PT 12.1, INR 1.0, APTT 24.6 08/14/20 06:05: Troponin I 0.202 H Rhythm: EKG: ECHO: Stress Test: Cardiac Cath: PCI: CT Surgery: Holter monitor: EPS: PPM: CXR: Chest CT Scan: Assessment/Plan 1. Chest pain: Appears to be typical by history. This appears to be unstable angina. We will proceed with coronary angiography. Risks and benefits explained to the patient. Patient is willing to proceed. Rest of the management will be based on coronary angiography findings.
--- NOTE | 2020-08-14 14:54 | CRPHASE1 ---
Patient Communication Former Patient:: Phase I PHII Cardiac Rehab Discussed with Patient:: Yes Guide to Cardiac Rehab Given to Patient:: Yes Cardiac Rehab Facility Choice List Given to Patient:: Yes Choice Program [facility] PHII:: Communication Given to CR Photoengraving Retoucher:: Shameka Christie Phase II Cardiac Rehab:: Yes Sessions:: 36 sessions - 3 days/wk, 12 weeks Risk Factors/Lifestyle Smoking Status: Current every day smoker Second-Hand Smoke:: Yes Hx Hypertension: Yes Hx Diabetes Mellitus Type 1: No Hx Diabetes Mellitus Type 2: No Hx Metabolic Disorders: No Hx Dyslipidemia: Yes Hx Obesity: No ETOH: Yes Laboratory Values: Cardiac Rehab Phase I Labs Triglycerides 160 mg/dL (-199) 08/14/20 04:02 Cholesterol 213 mg/dL (200) H 08/14/20 04:02 LDL Cholesterol 114 mg/dL (0-130) 08/14/20 04:02 HDL Cholesterol 67 mg/dL (40-) 08/14/20 04:02 Phase I Education Given On:: [place], Nutrition, Antiplatelet medication, Smoking cessation Issues Affecting Care:: None Knowledge of Condition:: Yes Cardiac Rehabilitation Info Cardiac Rehabilitation Program Information: Cardiac Rehabilitation is important for patients like you who are recovering from a heart problem. Cardiac rehabilitation programs are recognized as integral to the continued care of the patient with coronary heart disease. The cardiac rehabilitation program is designed to optimize a patient's physical, psychological, and social functioning. Health manager intensive care work in cardiac rehabilitation programs and assist you with getting the treatments you need to get stronger and healthier - like exercise, healthy eating habits, and medications. Cardiac rehabilitation has been show to help people with heart problems live longer and have better life enjoyment than people who do not go to cardiac rehabilitation. Please contact the Cardiac Rehabilitation Program at [facility] at in two weeks if you have not heard from them.
--- NOTE | 2020-08-14 14:56 | CRPH1.INST_ITS ---
General Education CAD and cardiac anatomy and function:: Patient communicates acknowledgment Explanation of diagnoses and procedures:: Patient communicates acknowledgment Sign/Symptoms of CA:: Patient communicates acknowledgment Antiplatelet therapy: Patient communicates acknowledgment Proper use of NTG-SL: Patient communicates acknowledgment Emergency procedures and activation of EMS: Patient communicates acknowledgment Compliance of all prescribed medications: Patient communicates acknowledgment Smoking Patient Nicotine/Smoking Risk Factors Are:: Cigarettes Recommendations Include:: Smoking cessation strategies/Smoking packet, Second- hand smoke recommendation, Participation in a smoking cessation program, Previous smoker; encourage continued cessation Nicotine/Smoking Response Code:: Patient communicates acknowledgment Dyslipidemia Patient Dyslipidemia Risk Factors Are:: Total Cholesterol, Triglycerides, HDL, LDL Recommendations Include:: Lipid profile provided, Reviewed NCEP/ATP guidelines, Therapeutic Lifestyle Change dietary guidelines Dyslipidemia Response Code:: Patient communicates acknowledgment Hypertension Patient Hypertension Risk Factors Are:: No documented hx of HTN Recommendations Include:: Maintain BP <130/85, DASH dietary guidelines, Decrease/maintain normal body weight, Moderation of ETOH Hypertension:: Patient communicates acknowledgment Sedentary Patient Sedentary Risk Factors Are:: Lack of regular exercise Recommendations Include:: Aerobic exercise 5-7 times/week for 20-30 minutes continuously, Benefits of regular exercise, Discussed home walking program, Monitored Outpatient Cardiac Rehab Sedentary Response Code:: Patient communicates acknowledgment
[2020-08-14] MEDS: Acetaminophen 325 MG Tablet 650 MG PO (22:15)
[2020-08-14] MEDS: Atorvastatin Calcium 20 MG Tablet PO (22:16)
[2020-08-15 03:00] VITALS: PULSE 72
[2020-08-15 04:11] VITALS: BP 138/83; PULSE 76; RESP 16; TEMP 36.6; O2SAT 97
[2020-08-15 06:52] LABS: Hematocrit 45.9 % (40-54); Hemoglobin 15.5 g/dL (13.0-16.5); Mean Corp Hgb Conc 33.8 g/dL (32-36); Mean Corpuscular Hgb 32.1 pg (27.0-32.0); Platelet Count 178 K/mm3 (150-450); RBC Distribution Width SD 45.9 fl (35.1-43.9); Red Blood Count 4.83 M/mm3 (4.6-6.2); White Blood Count 6.7 K/mm3 (4.4-11.0)
[2020-08-15 07:00] VITALS: PULSE 73
[2020-08-15 07:29] VITALS: PULSE 84; RESP 18; O2SAT 98
[2020-08-15] MEDS: Ipratropium/Albuterol Sulfate 3 ML AMPUL.NEB INHALATION (07:29)
[2020-08-15 07:31] LABS: ALB/GLOB Ratio 0.9 RATIO (0.9-2.4); AST(SGOT) 26 U/L (15-37); Alanine Aminotransfer ALT/SGPT 34 U/L (16-61); Albumin, Serum 3.8 g/dL (3.2-5.0); Alkaline Phosphatase 71 U/L (45-117); Anion Gap 6 (5-15); BUN 12 mg/dL (7-18); Chloride 102 mmol/L (98-107); EST Glomerular Filtration Rate 67 mL/min (>60); Est Glom Filt Rate - Afr Amer 80 mL/min (>60); Estimated Creatinine Clearance 62.03 ml/min; Globulin 4.1 g/dL (2.2-4.2); Glucose 111 mg/dL (74-106); Potassium 4.3 mmol/L (3.5-5.1); Protein, Total 7.9 g/dL (6.4-8.2); Sodium Level 134 mmol/L (136-145)
[2020-08-15] MEDS: Aspirin E.C. 81 MG Tablet PO (07:43)
[2020-08-15] MEDS: Multivitamins,Ther W-Minerals Tablet 1 TABLET PO (07:43)
[2020-08-15] MEDS: Thiamine Hydrochloride 100 MG Tablet PO (07:43)
[2020-08-15] MEDS: Folic Acid 1 MG Tablet PO (07:43)
[2020-08-15] MEDS: Lisinopril 20 MG Tablet PO (07:44)
[2020-08-15] MEDS: TICAGRELOR 90 MG TABLET PO (07:44)
[2020-08-15] MEDS: Famotidine 20 MG Tablet PO (07:44)
[2020-08-15 07:52] VITALS: BP 134/80; PULSE 78; RESP 18; TEMP 36.6; O2SAT 95
--- NOTE | 2020-08-15 10:00 | EKG12_ITS ---
Test Reason : Blood Pressure : / mmHG Vent. Rate : 077 BPM Atrial Rate : 077 BPM P-R Int : 178 ms QRS Dur : 070 ms QT Int : 370 ms P-R-T Axes : 065 065 055 degrees QTc Int : 418 ms Normal sinus rhythm Normal ECG Confirmed by KAYLIN OROPEZA, EL ([id number]), telegraph editor VENESSA PINEDA ([id number]) on 08/17/2020 10:23:11 AM Referred By: ERNST Confirmed By:EL EWING MD
--- NOTE | 2020-08-15 10:50 | PCM.DC ---
- Discharge Diagnoses Current Active Problems: Current Active and Chronic Problems Tobacco use (Chronic) ETOH abuse (Chronic) Coronary artery disease You will use the following diet at home:: Cardiac Discharge Activity: - - Follow post cath activity instructions. Call your doctor if you observe: Shortness of breath, Dizziness, Fainting spells, Chest pain Allergies/Adverse Reactions: Allergies No Known Allergies Allergy (Verified 07/11/20 07:59) Medications to take at Discharge Lisinopril [Zestril] 20 mg PO DAILY 03/14/15 Aspirin E.C. [Ecotrin] 81 mg PO DAILY@0800 #90 tab 08/15/20 Atorvastatin Calcium [Lipitor] 20 mg PO QHS #90 tab 08/15/20 Metoprolol Tartrate 25 mg PO BID #180 tab 08/15/20 Nicotine [Nicoderm Cq] 21 mg TRANSDERM. DAILY #14 patch 08/15/20 Ticagrelor [Brilinta] 90 mg PO BID #180 tab 08/15/20 The following prescriptions were given: Ticagrelor [Brilinta] 90 mg PO BID #180 tab Transmission Status: [facility] Aspirin E.C. [Ecotrin] 81 mg PO DAILY@0800 #90 tab Transmission Status: [facility] [place] [id number] Atorvastatin Calcium [Lipitor] 20 mg PO QHS #90 tab Transmission Status: [facility] [place] [address] Metoprolol Tartrate 25 mg PO BID #180 tab Transmission Status: Pending to [address] Nicotine [Nicoderm Cq] 21 mg TRANSDERM. DAILY #14 patch Transmission Status: Received by [address] Primary Care Physician: Saran Landry DO [Primary Care Provider] - Please follow up with your Primary Care Physician in: 1 Week Test Results: Test results from this visit will be discussed in further detail at your follow-up appointment, if applicable. Please Follow Up With: Shameka Chrisite MD When: 2 Weeks Proposed Discharge Date: 08/15/20
--- NOTE | 2020-08-15 11:35 | CASEMGMT ---
Pt to be sent home on Brilinta at discharge and med e-scribed to [facility] previously. Call to [facility] and per tech, pt is showing as not eligible for prescription coverage at this time. Insurance info and birthdate clarified at this time and still state no coverage. Brilinta card for 30 days free applied at this time and per tech, pt's cost of all meds at this time is $24 excluding the nicotine patches. Pt/ updated on all and encouraged to f/u with insurance and employer regarding all. Pt/ aware that only 30 days of Brilinta will be covered at this time and card provided to them at this time, voices understanding. Pt/ voice no further questions/concerns/needs at this time. Patricia MARIA CM
--- NOTE | 2020-08-15 11:58 | PCM.DC.SUM ---
<Maite Magallon EPIC PRELUDE ANALYST - Last Filed: 08/15/20 12:06> Discharge Date and Diagnosis - Problem List Patient Problems: Active and Suspected Problems (Last Reviewed 07/11/20 @ 07:59 by Florencio Quiroga) COPD (chronic obstructive pulmonary disease) (Suspected) Date of Admission: 08/13/20 Date of Discharge: 08/15/20 - Primary Discharge Diagnosis Acute Problems: 1. Chest pain, abnormal troponin-CAD status post stent to left circumflex. 2. Hypertension 3. Tobacco dependence 4. Suspected underlying COPD 5. Alcohol dependence Suspected Problems: Suspected Problems (Last Reviewed 07/11/20 @ 07:59 by Florencio Quiroga) COPD (chronic obstructive pulmonary disease) (Suspected) - Secondary Discharge Diagnosis Chronic Problems: Chronic Problems (Last Reviewed 07/11/20 @ 07:59 by Florencio Quiroga) Tobacco use (Chronic) ETOH abuse (Chronic) Hypertension (Chronic) Psoriatic arthritis (Chronic) Hospital Course and Treatment Imaging Results: Diagnostic Data Chest X-Ray 08/13/20 22:10 IMPRESSION: Normal x-ray examination of the chest. Electronically Signed: Sujata Ventura MD at 22:59 EDT Tel , Service support , Dr. Christie- Cardiology Operations: None Procedures: 2-D Echocardiogram, Cardiac catheterization Summary of Care Provided: The patient is a 55 year old M admitted 08/13/2020 due to chest pain. 1. Chest pain/abnormal troponin/CAD-cardiology consulted. Patient underwent heart cath with stent placement to left circumflex. Echocardiogram demonstrates an EF of 60%. Continue aspirin, statin, Brilinta, metoprolol, lisinopril. Advised on smoking cessation. Outpatient cardiac rehab. Patient was scheduled for upcoming balloon sinuplasty as well as carpal tunnel surgery. Discussed with patient these will need to be delayed until cleared by cardiology. Follow-up with cardiology in 2 weeks. Follow-up with primary care physician in 1 week. Patient requesting short-term disability/FMLA. Work excuse given x1 week until PCP follow-up for further arrangements. 2. Hypertension-stable, continue lisinopril regimen. Initiated on metoprolol. 3. Tobacco dependence- encouraged cessation. Nicotine replacement patch at discharge. Discussed smoking cessation techniques. Patient motivated to quit. 4. Suspected underlying COPD-given extensive tobacco use history. Recommend outpatient follow-up for pulmonary function test which can be ordered/referred by PCP. 5. Alcohol dependence- CIWA, multivitamin, thiamine, folic acid supplementation. Patient declines [employer] consult. No withdrawal symptoms during admission. General: Alert, Oriented x3, Cooperative HEENT: Atraumatic, PERRLA, EOMI, Normocephalic Neck: Supple, No JVD, Negative Carotid Bruits Lungs: Clear to auscultation, Normal air movement Cardiovascular: Regular rate, No murmurs Abdomen: Bowel Sounds Present, Soft, Non Tender, Non-Distended Extremities: No clubbing, No cyanosis, No edema, Capillary Refill Less than 3 Seconds Skin: No rashes, No breakdown Musculoskeletal: No Tenderness to Palpation of Joints or Extremities Neurological: Cranial nerves II-XII grossly intact, Neuro grossly intact Psych/Mental Status: Normal Affect, Appropriate Patient seen and examined prior to discharge. Physical assessment as noted above. Patient is stable for discharge with follow up recommendations as noted above. This patient was seen by GEETA Valencia under the supervision of Dr. Ramirez. Patient Problems: Active and Suspected Problems (Last Reviewed 07/11/20 @ 07:59 by Florencio Quiroga) COPD (chronic obstructive pulmonary disease) (Suspected) - Physical Exam Vitals/I&O's: Vital Signs Temp Pulse Resp BP Pulse Ox 97.9 F 78 18 134/80 H 95 08/15/20 07:52 08/15/20 07:52 08/15/20 07:52 08/15/20 07:52 08/15/20 07:52 Oxygen Flow Rate (L/min) 2 Oxygen Delivery Method Room Air Weight: 169 lb 12.095 oz Body Mass Index (BMI) 27.3 Intake and Output for Last 24 Hours 08/13/20 08/14/20 08/15/20 23:59 23:59 23:59 Intake Total 2621.00 / 2621.00 360 / 360 Balance 2621.00 / 2621.00 360 / 360 Laboratory Results 08/15/20 06:25: WBC 6.7, RBC 4.83, Hgb 15.5, Hct 45.9, MCV 95.0 H, MCH 32.1 H, MCHC 33.8, RDW Std Deviation 45.9 H, RDW Coeff of Padmini 13.0, Plt Count 178, MPV 9.0 08/15/20 06:25: Sodium 134 L, Potassium 4.3, Chloride 102, Carbon Dioxide 26.0, Anion Gap 6, BUN 12, Creatinine 1.20, Estim Creat Clear Calc 62.03, Est GFR (MDRD) Af Amer 80, Est GFR (MDRD) Non-Af 67, BUN/Creatinine Ratio 10.0, Glucose 111 H, Calcium 9.0, Total Bilirubin 0.70, AST 26, ALT 34, Alkaline Phosphatase 71, Total Protein 7.9, Albumin 3.8, Globulin 4.1, Albumin/Globulin Ratio 0.9 Current Medications Acetaminophen (Tylenol) 650 mg PO Q6H PRN PRN PRN Reason: Pain Score 1-10/Temp > 100.7 F Last Admin: 08/14/20 22:15 Dose: 650 mg Documented by: Al Hydroxide/Mg Hydroxide (Mylanta Ii) 30 ml PO Q6H PRN PRN PRN Reason: Gastric Burning Albuterol Sulfate (Ventolin Aerosols) 2.5 mg INHALATION Q2H PRN PRN PRN Reason: Dyspnea, wheezing Albuterol/Ipratropium (Duoneb) 3 ml INHALATION Q6HWA.RT [facility] Last Admin: 08/15/20 07:29 Dose: 3 ml Documented by: Aspirin (Ecotrin) 81 mg PO DAILY@0800 [facility] Last Admin: 08/15/20 07:43 Dose: 81 mg Documented by: Atorvastatin Calcium (Lipitor) 20 mg PO QHS [facility] Last Admin: 08/14/20 22:16 Dose: 20 mg Documented by: Atropine Sulfate () 0.5 mg IV UD PRN PRN Reason: HR <50 bpm Famotidine (Pepcid) 20 mg PO BID [facility] Last Admin: 08/15/20 07:44 Dose: 20 mg Documented by: Folic Acid (Folic Acid) 1 mg PO DAILY@0800 [facility] Stop: 08/16/20 08:01 Last Admin: 08/15/20 07:43 Dose: 1 mg Documented by: Guaifenesin (Robitussin) 20 ml PO Q4H PRN PRN PRN Reason: COUGH Heparin Sodium (Beef Lung) (Heparin 500 Unit/5 Ml (100/Ml)) 500 unit IV UD PRN PRN Reason: HEPARIN FLUSH Labetalol HCl (Trandate) 5 mg IV X1 PRN PRN Reason: SBP >160 when pulling sheath Stop: 08/16/20 13:28 Lisinopril (Zestril) 20 mg PO DAILY [facility] Last Admin: 08/15/20 07:44 Dose: 20 mg Documented by: Lorazepam (Ativan) 2 mg PO Q2H PRN PRN; Protocol PRN Reason: CIWA score > 8 but <15 Lorazepam (Ativan) 2 mg PO UD PRN; Protocol PRN Reason: CIWA score >/=15. Lorazepam (Ativan) 2 mg IV Q2H PRN PRN; Protocol PRN Reason: CIWA score > 8 but <15 Lorazepam (Ativan) 2 mg IV UD PRN; Protocol PRN Reason: CIWA score >/=15. Magnesium Hydroxide (Milk Of Magnesia) 30 ml PO DAILY PRN PRN PRN Reason: Constipation Morphine Sulfate () 2 mg IV Q3H PRN PRN PRN Reason: Pain Score 6-10 Multivitamins/Minerals (Multivitamin With Minerals (Bkc)) [facility] Last Admin: 08/15/20 07:43 Dose: 1 tablet Documented by: Nicotine (Nicoderm Cq (Pbkc)) 21 mg TRANSDERM. DAILY [facility] Last Admin: 08/15/20 07:43 Dose: 21 mg Documented by: Nitroglycerin (Nitrostat) 0.4 mg SUBLINGUAL Q5M PRN PRN Reason: CARDIAC/CHEST PAIN Ondansetron HCl (Zofran) 4 mg IV Q8H PRN PRN PRN Reason: NAUSEA/VOMITING Oxycodone HCl (Oxyir) 5 mg PO Q4H PRN PRN PRN Reason: Pain Score 4-5 Prochlorperazine Edisylate (Compazine Iv) 5 mg IV Q4H PRN PRN PRN Reason: Breakthrough Nausea/Vomiting Psyllium Hydrophilic Mucilloid (Metamucil) 1 packet PO DAILY PRN PRN PRN Reason: Constipation Senna/Docusate Sodium (Senokot-S, Martina-Colace) 2 tablet PO BID PRN PRN PRN Reason: Constipation Sodium Chloride () 10 - 40 ml IV UD PRN PRN Reason: SALINE FLUSH Sodium Chloride () 500 ml IV BOLUS PRN PRN Reason: VASO-VAGAL PROTOCOL Temazepam (Restoril) 15 mg PO QHS PRN PRN PRN Reason: INSOMNIA Thiamine HCl ([facility]itamin B1) [facility] Stop: 08/16/20 17:01 Last Admin: 08/15/20 07:43 Dose: 100 mg Documented by: Throat Lozenges (Cepacol Sore Throat Lozenge) 1 lozenge MUCOUS MEM Q2H PRN PRN PRN Reason: SORE THROAT Ticagrelor (Brilinta) 90 mg PO BID [facility] Last Admin: 08/15/20 07:44 Dose: 90 mg Documented by: Discharge Diet: Low fat/ Low Cholesterol, 2000 mg Sodium Diet Discharge Activity: - - Follow post cath activity instructions. Call your doctor if you observe: Shortness of breath, Dizziness, Fainting spells, Chest pain Home Medications: Medications to take at Discharge Lisinopril [Zestril] 20 mg PO DAILY 03/14/15 Aspirin E.C. [Ecotrin] 81 mg PO DAILY@0800 #90 tab 08/15/20 Atorvastatin Calcium [Lipitor] 20 mg PO QHS #90 tab 08/15/20 Metoprolol Tartrate 25 mg PO BID #180 tab 08/15/20 Nicotine [Nicoderm Cq] 21 mg TRANSDERM. DAILY #14 patch 08/15/20 Ticagrelor [Brilinta] 90 mg PO BID #180 tab 08/15/20 Following Prescriptions Were Given to Patient: Ticagrelor [Brilinta] 90 mg PO BID #180 tab Transmission Status: Received by [facility] Aspirin E.C. [Ecotrin] 81 mg PO DAILY@0800 #90 tab Transmission Status: Received by [facility] Atorvastatin Calcium [Lipitor] 20 mg PO QHS #90 tab Transmission Status: Received by [facility] Metoprolol Tartrate 25 mg PO BID #180 tab Transmission Status: Received by [facility] Nicotine [Nicoderm Cq] 21 mg TRANSDERM. DAILY #14 patch Transmission Status: Received by [facility] Primary Care Physician: Saran Landry DO [Primary Care Provider] - Please follow up with your Primary Care Physician in: 1 Week Please Follow Up With: Shameka Christie MD When: 2 Weeks Disposition: Home Minutes spent on discharge:: 35 Patient Condition:: Stable Medical Necessity - Tobacco Use Smoking Status: Current every day smoker Tobacco Use: Cigarettes Meaningful Use Info Meaningful Use Diagnoses (Choose all that apply): None applicable <Katerine Ramirez - Last Filed: 08/15/20 15:51> Discharge Date and Diagnosis - Primary Discharge Diagnosis Suspected Problems: Suspected Problems (Last Reviewed 07/11/20 @ 07:59 by Florencio Quiroga) COPD (chronic obstructive pulmonary disease) (Suspected) - Secondary Discharge Diagnosis Chronic Problems: Chronic Problems (Last Reviewed 07/11/20 @ 07:59 by Florencio Quiroga) Tobacco use (Chronic) ETOH abuse (Chronic) Hypertension (Chronic) Psoriatic arthritis (Chronic) Hospital Course and Treatment Summary of Care Provided: This patient was seen in conjunction with Maite Magallon NP. I have independently interviewed and examined the patient and reviewed pertinent historical, laboratory, and other data. Please refer to her note for patient's presentation, findings, and recommendations. 55-year-old male, chronic smoker who presented with chest pain ongoing for a week and half, substernal, worse with activity. Patient's troponins were elevated. He was treated as acute NSTEMI/unstable angina. He was admitted to telemetry floor, his troponins were trended and they continue to rise. Cardiology was consulted. Underwent cardiac catheterization and had 2 stents placed in his left circumflex. He was managed postprocedure in the PCU with no acute events. On the day of discharge, patient was seen and examined. Denied any new complaints. No acute events on telemetry. Vitals were reviewed -stable Physical Exam: Gen: Comfortable, not pale, not jaundiced, alert oriented x3 CVS:HS I +II, regular, no murmurs RESP: Diminished at lung bases GI: BS present and normal, nontender, no palpable organs EXT:No edema - Physical Exam Vitals/I&O's: Vital Signs Temp Pulse Resp BP Pulse Ox 97.9 F 78 18 134/80 H 95 08/15/20 07:52 08/15/20 07:52 08/15/20 07:52 08/15/20 07:52 08/15/20 07:52 Oxygen Flow Rate (L/min) 2 Oxygen Delivery Method Room Air Weight: 77 kg Body Mass Index (BMI) 27.3 Intake and Output for Last 24 Hours 08/13/20 08/14/20 08/15/20 23:59 23:59 23:59 Intake Total 2621.00 / 2621.00 360 / 360 Balance 2621.00 / 2621.00 360 / 360 Laboratory Results 08/15/20 06:25: WBC 6.7, RBC 4.83, Hgb 15.5, Hct 45.9, MCV 95.0 H, MCH 32.1 H, MCHC 33.8, RDW Std Deviation 45.9 H, RDW Coeff of Padmini 13.0, Plt Count 178, MPV 9.0 08/15/20 06:25: Sodium 134 L, Potassium 4.3, Chloride 102, Carbon Dioxide 26.0, Anion Gap 6, BUN 12, Creatinine 1.20, Estim Creat Clear Calc 62.03, Est GFR (MDRD) Af Amer 80, Est GFR (MDRD) Non-Af 67, BUN/Creatinine Ratio 10.0, Glucose 111 H, Calcium 9.0, Total Bilirubin 0.70, AST 26, ALT 34, Alkaline Phosphatase 71, Total Protein 7.9, Albumin 3.8, Globulin 4.1, Albumin/Globulin Ratio 0.9 Current Medications Acetaminophen (Tylenol) 650 mg PO Q6H PRN PRN PRN Reason: Pain Score 1-10/Temp > 100.7 F Last Admin: 08/14/20 22:15 Dose: 650 mg Documented by: Al Hydroxide/Mg Hydroxide (Mylanta Ii) 30 ml PO Q6H PRN PRN PRN Reason: Gastric Burning Albuterol Sulfate (Ventolin Aerosols) 2.5 mg INHALATION Q2H PRN PRN PRN Reason: Dyspnea, wheezing Albuterol/Ipratropium (Duoneb) 3 ml INHALATION Q6HWA.RT [facility] Last Admin: 08/15/20 07:29 Dose: 3 ml Documented by: Aspirin (Ecotrin) 81 mg PO DAILY@0800 [facility] Last Admin: 08/15/20 07:43 Dose: 81 mg Documented by: Atorvastatin Calcium (Lipitor) 20 mg PO QHS [facility] Last Admin: 08/14/20 22:16 Dose: 20 mg Documented by: Atropine Sulfate () 0.5 mg IV UD PRN PRN Reason: HR <50 bpm Famotidine (Pepcid) 20 mg PO BID [facility] Last Admin: 08/15/20 07:44 Dose: 20 mg Documented by: Folic Acid (Folic Acid) 1 mg PO DAILY@0800 [facility] Stop: 08/16/20 08:01 Last Admin: 08/15/20 07:43 Dose: 1 mg Documented by: Guaifenesin (Robitussin) 20 ml PO Q4H PRN PRN PRN Reason: COUGH Heparin Sodium (Beef Lung) (Heparin 500 Unit/5 Ml (100/Ml)) 500 unit IV UD PRN PRN Reason: HEPARIN FLUSH Labetalol HCl (Trandate) 5 mg IV X1 PRN PRN Reason: SBP >160 when pulling sheath Stop: 08/16/20 13:28 Lisinopril (Zestril) 20 mg PO DAILY [facility] Last Admin: 08/15/20 07:44 Dose: 20 mg Documented by: Lorazepam (Ativan) 2 mg PO Q2H PRN PRN; Protocol PRN Reason: CIWA score > 8 but <15 Lorazepam (Ativan) 2 mg PO UD PRN; Protocol PRN Reason: CIWA score >/=15. Lorazepam (Ativan) 2 mg IV Q2H PRN PRN; Protocol PRN Reason: CIWA score > 8 but <15 Lorazepam (Ativan) 2 mg IV UD PRN; Protocol PRN Reason: CIWA score >/=15. Magnesium Hydroxide (Milk Of Magnesia) 30 ml PO DAILY PRN PRN PRN Reason: Constipation Morphine Sulfate () 2 mg IV Q3H PRN PRN PRN Reason: Pain Score 6-10 Multivitamins/Minerals (Multivitamin With Minerals (Bkc)) [facility] Last Admin: 08/15/20 07:43 Dose: 1 tablet Documented by: Nicotine (Nicoderm Cq (Pbkc)) 21 mg TRANSDERM. DAILY [facility] Last Admin: 08/15/20 07:43 Dose: 21 mg Documented by: Nitroglycerin (Nitrostat) 0.4 mg SUBLINGUAL Q5M PRN PRN Reason: CARDIAC/CHEST PAIN Ondansetron HCl (Zofran) 4 mg IV Q8H PRN PRN PRN Reason: NAUSEA/VOMITING Oxycodone HCl (Oxyir) 5 mg PO Q4H PRN PRN PRN Reason: Pain Score 4-5 Prochlorperazine Edisylate (Compazine Iv) 5 mg IV Q4H PRN PRN PRN Reason: Breakthrough Nausea/Vomiting Psyllium Hydrophilic Mucilloid (Metamucil) 1 packet PO DAILY PRN PRN PRN Reason: Constipation Senna/Docusate Sodium (Senokot-S, Martina-Colace) 2 tablet PO BID PRN PRN PRN Reason: Constipation Sodium Chloride () 10 - 40 ml IV UD PRN PRN Reason: SALINE FLUSH Sodium Chloride () 500 ml IV BOLUS PRN PRN Reason: VASO-VAGAL PROTOCOL Temazepam (Restoril) 15 mg PO QHS PRN PRN PRN Reason: INSOMNIA Thiamine HCl (Vitamin B1) [facility] Stop: 08/16/20 17:01 Last Admin: 08/15/20 07:43 Dose: 100 mg Documented by: Throat Lozenges (Cepacol Sore Throat Lozenge) 1 lozenge MUCOUS MEM Q2H PRN PRN PRN Reason: SORE THROAT Ticagrelor (Brilinta) 90 mg PO BID [facility] Last Admin: 08/15/20 07:44 Dose: 90 mg Documented by: Inpatient E&M: [id number] Disch Hosp
--- NOTE | 2020-08-18 15:53 | CL.I_ITS ---
Patient Name: ASHLEY PRATER Study Date: 08/14/2020 Performing: Digna Christie MD Ht: 66 inches 168 cm : 1965 Wt: 170 lbs 77 kg Age: 55 Gender: male BSA: 1.87 PROCEDURE(S) PERFORMED [id number] W OR WO PTCA, SINGLE CORONARY ARTERY CLINICAL PROFILE AND CO-MORBIDITIES Indications: ACS <= 24 hrs Heart Failure: None Stress/Imaging Stress/Image Study Performed: No CAD Presentations: Unstable angina. CONCLUSIONS Single vessel CAD as described. Preserved EF. No significant or MR. Successful PCI of mLCx with DE S RECOMMENDATIONS ASA Indefinitlefernanda Brlashondata for at least 12 months Follow up with primary lmft DESCRIPTION OF PROCEDURE The patient arrived to the procedure lab. The risks and benefits of the procedure as well as a full d escription of our services here and lack of surgical backup were fully explained to the patient and/o r their significant other prior to the catheterization. The Timeout was completed, verifying the jackson ect patient and procedure. The patient's procedural site was prepped and draped in the usual fashion. Local anesthetic was given subcutaneously to right radial region with Lidocaine 2%. Using a modified Seldinger technique, arterial access was obtained via the right radial artery, a 6Fr sheath was inse rted.. Left Coronary Artery selective angiography was performed in multiple views using a 5 Fr. JL3. 5 catheter. Left Ventriculography was performed in JONES projection using a 5 Fr. JR4.. LV to AO pullba ck pressures were then recorded. Right Coronary Artery selective angiography was then performed in mu ltiple views using a 5 Fr. JR 4 catheterThe images were reviewed and options discussed. A decision was then made to proceed with an Intervention, IVUS or other adjunct procedure. XB 3 Guide catheter was inserted and engaged into the LCA. BMW Guide wire was advanced to the Cir cumflex. 2.25 x 20 Emerge Balloon catheter was advanced across lesion in the circumflex, mid. Angiogr am performed pre balloon dilatation. PTCA balloon inflated at 10 atms for 13 secs. PTCA balloon infla anali at 12 atms for 8 secs. PTCA balloon inflated at 10 atms for 15 secs. PTCA balloon inflated at 10 atms for 8 secs. 2.5 x 38 Synergy Drug Eluting stent was advanced across the lesion in the circumflex , mid. 2.5 x 20 synergy Drug Eluting stent was advanced across the lesion in the circumflex, mid. Ang iogram performed post stent deployment. The arterial sheath was pulled and a TR Band was applied fo r hemostasis CORONARY ANGIOGRAPHY DOMINANCE: Right Dominant LEFT HEART ASSESSMENT Left Ventricular Ejection Fraction: by LV Gram 60 % Normal LV wall motion LEFT MAIN: No significant disease noted LEFT ANTERIOR DESCENDING ARTERY: Mild luminal irregularities. Myocardial bridging noted in the mLAD CIRCUMFLEX ARTERY: 99 % Stenosis in the mid portion RIGHT CORONARY ARTERY: Mild luminal irregularities VALVE FINDINGS: No Aortic Valve Stenosis No Mitral Insufficency INTERVENTION INFORMATION LESION SITE: Circumflex (Mid) Lesion Complexity: High/C, chronic total occlusion: No, lesion at bifurcation: Yes, thrombus present: No, lesion length: 45 mm, culprit lesion: Yes, Previously treated lesion: No, In-stent restenosis: N o Pre Stenosis: 99 % Pre intervention SYLVIA flow: 2 PROCEDURE: Drug Eluting Stent with pre dilatation. Post Stenosis: 0 % Post intervention SYLVIA flow: 3 Lesion Devices: Cardinal 6 Fr XB3.0 100cm Guide Catheter [place] .014 BMW [place] Straight 190cm Rigo Sci EMERGE MR 2.25x20 BALLOON Rigo Sci Synergy MR ANH 2.50x38 Rigo Sci Synergy MR ANH 2.50x20 COMPLICATIONS No Complications PROCEDURE MEDICATIONS Fentanyl 50 mcg IV Versed 2 mg IV Oxygen: 2 L/min via nasal cannula Brilinta 180 mg PO @ 08/14/2020 13:24:36 Heparin given IA 08/14/2020 12:44:07 Heparin 3000 unit(s) IV 08/14/2020 12:56:48 Nitro 200 mcg IC 08/14/2020 13:17:48 Verapamil 2.5mg, Ntg 100mcgs, 3000 units of Heparin given IA 08/14/2020 12:44:07 IV Bolus: .9 NaCl 500 ml total 08/14/2020 13:24:48 SUMMARY OF HEMODYNAMIC DATA Time AIR REST ECG 12:34:51 AO 108/76 (90) SA 12:46:52 AO 112/80 (95) 12:47:38 AO 126/82 (104) 12:49:11 LV 144/-11, 8 12:53:09 LV 144/-13, 5 12:53:16 LV 147/-9, 14 12:54:08 LVp 120/-3, 5 12:54:15 AOp 128/67 (94) 12:54:20 AO 126/67 (94) 12:54:23 Signed By Digna Christie MD On 08/18/2020 3:52:39 PM Digna Christie MD
== END 2020-08-15 10:50 | disposition home or self-care (01) | DRG 247 ==
LOC: ED 22:42 → PCU 23:44
PROVIDERS: Specialist; Admitting Provider Family Medicine; Emergency Provider Emergency Medicine; PCP Family Medicine; Visit Provider Internal Medicine
DX: I21.4 Non-ST elevation (NSTEMI) myocardial infarction (principal); I25.110 Atherosclerotic heart disease of native coronary artery with unstable angina pectoris; R06.00 Dyspnea, unspecified; I10 Essential (primary) hypertension; F10.20 Alcohol dependence, uncomplicated; J44.9 Chronic obstructive pulmonary disease, unspecified; L40.50 Arthropathic psoriasis, unspecified; F17.210 Nicotine dependence, cigarettes, uncomplicated; G89.29 Other chronic pain
CPT/HCPCS: 36415; 71045; 80048; 80053; 80061; 80307; 80320; 83735; 84100; 84484; 85025; 85027; 85610; 85730; 92928; 93005; 93306; 93458; 94640; 96360; 96361; 96372; 97802; 99152; 99153; 99218; 99285; 99406; J7030; Q9967; A4216; C1725; C1769; C1874; C1887; C1894; C9600; G0378; G0480

== ENCOUNTER → 2020-08-22 09:43 | Outpatient (CLI) | payer BC, SELFPAY ==
[2020-08-14 00:13] VITALS: BMI 27.3
--- NOTE | 2020-08-22 09:50 | PCM.CR.ITP ---
Diagnosis - General Information Admitting Diagnosis: NSTEMI, PCI W/CORONARY STENT PALCEMENT 08/14/2020 Secondary Diagnosis: I25.10, HYPERTENSION, HYPERLIPIDEMIA Personal Learning Style:: Written Barriers to Learning: No Barriers - Education/Goals Individual Counseling: Initial Assessment: Nicotine/Smoking, Abnormal Cholesterol Levels, High Blood Pressure Cardiac Rehabilitation Goals: 1. Maintain the individual as the primary focus of care. 2. To improve the patient's quality of life. 3. Identification of cardiac risk factors and provide cardiac risk factor management. 4. Enhance the psychosocial status of the patient. 5. Reconditioning enough to allow the patient to resume customary activities. 6. Control symptoms of cardiac disease Scale for measuring improvement of personal goals: Enter appropriate number in Comments. 2 = Unchanged. 3 = Slightly Better. 4 = Moderate Improvement. 5 = Met my Goal - Diagnosis & Disease Process Outcomes/Goals: Pt IDs own risk factors & lifestyle modifications by Session 10, Verbalizes symptoms of angina & response by session 3., Pt independently manages Plan/Interventions: Assist Pt to ID & engage in lifestyle modification to reduce CVD risk, Instruct on individual risk factors, Review symptoms of angina & emergency actions, Review secondary diagnosis & identify educational needs. - Safety Referral to Physical Therapy: No Referral to [facility] Case Management: No Fall Risk Assessed:: Yes Assistive Devices:: None Exercise - Initial Assessment - Visit Date of Eval: 08/22/20 Session #:: 0 - PRE-CARDIAC REHAB Mets: Pre-: >7 METS for 30 minutes by discharge - Physician Prescribed Exercise Modalities: Treadmill, Rower, Airdyne, NuStep Frequency: 3x/week for 12 weeks [36 sessions] Intensity: 60-80% of age predicted maximum heart rate reserve Current METSs:: 4.0 Target Heart Rate:: 106-139 EKG Type: NORMAL SUINUS RHYTHM - Outcomes & Goals Goals:: Verbalizes understanding of THR, RPE & goal METS by session 6, Documents in home exercise log/reports 30 min aerobic 5 day/wk by DC, Demonstrates accurate pulse taking by DC - Intervention & Plan Exercise Program Goals: Instruct on personal THR & RPE, Instruct on MET level & personal MET goal, Show patient to take own pulse /validate performance until accurate, Instruct on home exercise - Physical Activity Home Exercise Physical Activity - Home Exercise: Safe Exercise, Warm-up, Self-monitoring, Cool-Down, Home Exercise > 30 min Daily, Sitting Time <3 hours/daily - Outcomes & Goals Outcomes/Goals: Demonstrates correct Warm-up/exercise Cool-Down (S3) if = 2.5 METs, Verbalizes symptoms of exercise intolerance by Session 3 (S3), Demonstrate safe equipment use (S3) & follows exercise prescrition (6) - Intervention & Plan Plan/Intervention: Instruct warm-up & cool-down if exercising at > 2 METs, Instruct on symptoms of exercise intolerance & actions to take, Instruct & monitor on saf Nutrition - Initial Assessment - Program Goals Nutrition Program Goals: LDL <100 optimal. 100 - 129 Near optimal. 130 - 159 Borderline High. 160 - 189 High. Total Cholesterol <200 desirable. 200 - 239 Borderline High. >/= 240 High. HDL < 40 Low >/=60 High. Triglycerides <150 desirable. <199 optimal. VlDL 5 - 40. HgbA1C <7%. BMI <25 Patient has diagnosis of Hyperlipidemia (ICD E78)?: Yes - Visit Date of Assessment:: 08/22/20 Session #:: 0 - PRE-CARDIAC REHAB - Cholesterol/Lipids Triglycerides (mg/dL): 160 - 08/14/2020 Total Cholesterol (mg/dL): 150 LDL Cholesterol (mg/dL): 114 HDL Cholesterol (mg/dL): 67 Determine presence & major risk factors that modify LDL goal: Cigarette smoking, Hypertension or hypertensive medication, Age men > 45 years; women >/= 55 years Outcomes/Goals: Pt IDs own risk factors & lifestyle modifications by Session 10, Verbalizes symptoms of angina & response by session 3., Pt independently manages Intervention/Plan: Instruct on personal lipid levels & lipid goals/NCEP guidelines, Instruct on cholesterol Referral to dietitian:: Yes - Diabetes (Other Core Measures) Diabetes Type: Not Applicable - Weight Mgt (Other Care) Not Applicable: Yes Height: 5 ft 6 in Weight:: 169 lb BMI: 27.2 Diagnosis Overweight/Obesity BMI> 30% ICD-10 E66: No Diagnosis High BMI/Morbid Obesity BMI> 35% ICD-10 Z68: No Outcomes/Goals: Pt sets, maintains & shows weight loss goal & trend during rehab Intervention/Plan: Instruct on ideal BMI & set weight loss goal w/patient - Healthy Eating Habits Will attend diet classes:: Yes Outcomes/Goals:: Consume diet rich in vegs,fruits,whole grain/high fiber,fish,lean meat, Limit sat/trans fats,cholesterol & added salts & sugars Intervention/Plan:: Assess current eating habits - Education Gave educational materials for:: Healthy eating Medical - Initial Assessment - Visit Date of Eval: 08/22/20 Session #:: 0 - PRE-CARDIAC REHAB - Medication Compliance Preventative Medication(s):: Aspirin, Ticagrelor/P2Y12 inhibitor, Statin/lipid, Beta anai H/O mental health issues: depression, anxiety, or addiction?: No Doesn?t believe in the benefits of treatment?: No Believes medications are unnecessary or harmful?: No Has a concern about medication side effects?: No Expresses concern over the cost of medications?: No Outcomes/Goals: Verbalizes medications,desired effect & common side effects @ DC, Pt self-reports following medication regimen, Keeps card in wallet w/medications listed by DC Interventions/plans: Instruct on medication effects & side effects, Review medication list w/patient every two weeks, Instruct importance of taking meds as ordered & assist problem solving - Tobacco Use Tobacco Use: Cigarettes How long ago did you quit using tobacco products?: Less than 6 months ago How many cigarettes do you smoke per day?: 0 - QUIT 08/14/2020 Years Smokin Do you use smokeless tobacco?: Yes Outcomes/Goals: Smoking cessation achieved or maintained by discharge, Identify aids/strategies for achieving smoking cessation by session 6 Interventions/plan: Instruct on effects of smoking & provide smoking cessation resource, Assist pt to set quit date & provide encouragement, Assist pt to develop strategies to achieve/maintain quit date, Assist pt w/nicotine replacement & medication for cessation success - MEJIA HAS NICOTINE REPLACEMENT NICODERM 21MG PATCH - Hypertension Hypertension Diagnosis:: Hypertension ICD-10 I10 Resting Blood Pressure:: 142/80 [place] [employer] Hypertension Guidelines: [place] [employer] Hypertension Guidelines. Normal BP Less than 120/80. Elevated BP 120/80. Hypertension Stage 1: BP 130-139/80-89. Hypertesnion Stage 2: BP 140 or higher/90 or higher. Hypertension Crisis: BP higher than 180/120 Outcomes/Goals: Able to verbalize/achieve optimal blood pressure <130/80, Incorporates diet changes & exercise for blood pressure control by DC Interventions/plan: Instruct on optimal blood pressure, hypertension & medications, Instruct on effects of sodium, alcohol, stress, exercise &hypertension - Tobacco Cessation Referral Smoking Cessation Referral:: Yes Individual Education/Counseling:: Yes Education Schedule Given:: Yes - ONLINE EDUCATION LINK PROVIDED TO PATIENT Psychosocial - Initial Assess - VIsit Date of Eval: 08/22/20 Session #:: 0 - PRE-CARDIAC REHAB Not Applicable: Yes - Target Goals Target Goals: Assess presence or absence of depression. Using a valid screening tool, maximizes coping skills. Positive support system - Psychosocial Test Tool Used:: Jean-Claudeans Kevin QOL Cardiac, PHQ-9 Questionnaire phq-9 Severity: Severity. 1-4 Minimal Depression. 5-9 Mild Depression. 10-14 Moderate Depression. 15-19 Moderately Sever Depression. 20-27 Severe Depression. Rule: - Referral to Behavioral Health PS - Interventions: Yes Attend Stress Management Classes, No Referral to Behavioral Health if PHQ-9 score >9:, No Referral to [facility], No Referral to Physician if PHQ-9 if score is 5-9: - Outcomes/Goals: See list Psychosocial Outcomes/Goals:: ID's personal stressors & 2 strategies to manage stress by discharge - Intervention/Plan: See List Interventions/Plan:: Assess stressors,coping strategies & signs of derpression on admission, Instruct/assist pt to develop coping & personal stress Mgt strategies, Instruct patient to recognize signs & symptoms of depression, Instruct patient to recog Patient Health Questionnaire Initial Assessment 1. Little interest or pleasure in doing things: Several days 2. Feeling down, depressed, or hopeless: Not at all 3. Trouble falling or staying asleep, or sleeping too much: Not at all 4. Feeling tired or having little energy: Nearly every day 5. Poor appetite or overeating: Not at all 6. Feeling bad about yourself -- or that you are a failure or have let yourself or your family down: Not at all 7. Trouble concentrating on things, such as reading the newspaper or watching television: Not at all 8. Moving or speaking so slowly that other people could have noticed. Or the opposite - being so fidgety or restless that you have been moving around a lot more than usual: Not at all 9. Thoughts that you would be better off , or of hurting yourself in some way: Not at all How difficult have these problems made it for you to do your work, take care of things at home, or get along with other people?: Not difficult at all Total Score: 4 PARMINDER-Q SV Test - Statements CAD is a disease of the arteries in the heart: False Examples of risk factors for heart disease: True Angina is chest pain or discomfort: True The benefits of resistance training include: True Eating more meat and dairy products: False Anti-platelet medications such as aspirin are important: True The only effective way to manage stress: False An exercise warm-up slowly increases heart rate: I Don't Know Prepared, processed foods usually have high sodium: True Depression is common after a heart attack: True The statin medications lower cholesterol: True To control blood pressure, lower the amount of sodium: True If someone gets chest discomfort during walking: False Transfats are partially hydrogenated vegetable oils: True Sleep apnea that is not treated increases the risk: False To control cholesterol, one should become a vegetarian: True Someone knows if he/she is exercising at the right level: True Diabetes cannot be prevented with exercise & health eating: False Stress is a large risk for heart attack: True A diet that can help lower blood pressure is rich in: True - Total Score Total Correct Responses: 18 Self-Efficacy Initial Assessment We would like to know how confident you are in doing certain activities. Please select your confidence level for:: Select your confidence level for the following using the scale 1-10 where 1 is not at all confident and 10 is totally confident. Your score is the average of all 6 responses. Fatigue: How confident are you that you can keep the fatigue caused by your disease from interfering with the things you want to do? Select Number: 10 Physical Discomfort or Pain: How confident are you that you can keep the physical discomfort or pain of your disease from interfering with the things you want to do? Select Number: 10 Emotional Distress: How confident are you that you can keep the emotional distress caused by your disease from interfering with the things you want to do? Select Number: 10 Other Symptoms or Health Problems: How confident are you that you can keep other symptoms or health problems from interfering with the things you want to do? Select Number: 10 Different Tasks and Activities: How confident are you that you can do the different tasks and activities needed to manage your health condition so as to reduce your need to see a doctor? Select Number: 10 Medication: How confident are you that you can do things other than just taking medication to reduce how much your illness affects your everyday life? Select Number: 10 Total Score:: 10 Nutrition Survey - Nutrition Survey Instructions Scoring Instructions: Scoring is as follows: Yes = 1 points. No = 0 point. Patient score that is >/=12 is considered to be at potential nutritional risk and could benefit from a referral to a registered dietitian. - Nutrition Survey Initial Have you lost >10 lbs over the past 2 months without trying?: No Are you following a special diet at home for diabetes, low fat, or low salt?: No Are you interested in meeting with a dietitian for help understanding your diet?: No Do you eat less than 3 meals a day?: No Do you eat fatty meats (veras, sausage, ribs, etc), fried foods, desserts, large amounts of salad dressings, margarine, butter, or cheese most days?: Yes Do you have food allergies? [Enter types in comment field]: No Do you eat in restaurants more than 3 times a week?: No Do you season food with salt, seasoning salt, or garlic salt?: No Do you used canned, boxed, frozen meals, or soups, seasoning packets?: No Total Score:: 1
--- NOTE | 2020-08-22 09:51 | CR.HP_ITS ---
CR - History & Physical - General Arrival date:: 08/22/20 Arrival time:: 09:53 Date of Referral:: 08/14/20 Date of CR Evaluation:: 08/22/20 Referring Physician: DR. DYER Primary Diagnosis: PCI W/CORONARY STENT - History of Present Cardiac Event Onset Date: Enter Onset Date of cardiac illnesses in Comment field below Acute Myocardial Infarction within 12 months:: Yes - 08/14/2020 PTCA or coronary stenting:: Yes - 08/14/20 Type of Symptoms:: CHEST PAIN RADIATING TO NECK JAW, SHORTNESS OF BREATH Interventions with present event:: HEART CATH, STENT PLACEMENT - Medications Home Medications: Ambulatory Orders Medication Instructions Recorded Lisinopril [Zestril] 20 mg PO DAILY 03/14/15 Aspirin E.C. [Ecotrin] 81 mg PO DAILY@0800 #90 tab 08/15/20 Atorvastatin Calcium [Lipitor] 20 mg PO QHS #90 tab 08/15/20 Metoprolol Tartrate 25 mg PO BID #180 tab 08/15/20 Nicotine [Nicoderm Cq] 21 mg TRANSDERM. DAILY #14 patch 08/15/20 Ticagrelor [Brilinta] 90 mg PO BID #180 tab 08/15/20 - Allergies Allergies/Adverse Reactions: Allergies No Known Allergies Allergy (Verified 07/11/20 07:59) - Sleep Disorder Evaluation Hx of Sleep Apnea: No Do you snore loudly (louder than talking or can be heard through closed doors)?: Yes Do you often feel tired/ fatigued/ sleepy during daytime?: No Has anyone observed you stop breathing during sleep?: No History of Hypertension (for STOP score): Yes STOP Results: Positive Advanced Directives - Advanced Directives Power of Gear Design Engineer: No Living Will: No Advance Directives Information Provided: Yes Advance Directives on File: No DNR Order?:: No - MOLST See MOLST form: No Past Medical History - Covid-19 Screening Fever: No Unexplained muscle aches: No Current respiratory symptoms: No Upper respiratory infections symptoms: No Gastro-intestinal symptoms: No [id number] symptoms: No Has tested positive for COVID-19 in last 30 days: No Had contact w/person w/symptoms or Covid-19 (+) last 14 days: No Has High Risk Exposures ID'd by Health dept/Inf Control team: No 65 years or older:: No Lives in Assisted Living facility:: No Has a chronic lung disease or moderate to severe asthma:: No Has a serious heart condition:: No Immunocompromised:: No Severely obese (Body Mass Index of 40 or higher):: No Diabetic:: No Has chronic kidney disease undergoing dialysis:: No Has liver disease:: No - Past Medical Illness Medical History: Past Medical History (Last Updated 08/22/20 @ 09:56 by Ang Parrish, FIRE CREW SPECIALIST, WATER SOFTENER SERVICER, BS) Chest pain in adult R07.9 RESOLVED SUSPECTED UNDERLYING COPD Tobacco dependence F17.200 Chronic neck and back pain M54.2, M54.9, G89.29 Hypertension I10 - Past Surgical History Surgical History: Past Surgical History (Last Updated 08/18/20 @ 17:01 by Anastasiya Avalos) Atherosclerosis of coronary artery of [place] heart without angina pectoris I25.10 History of coronary artery stent placement Onset Date: 08/14/20 Z95.5 2.50 x 38 mm and 2.50 x 20 mm Synergy MR ANH to mLCx 08/14/20 History of spinal surgery Z98.890 Surgical History: - - Neck surgery with anterior approach per patient description, left carpal tunnel surgery. Social History - Smoking History Smoking Status: Current every day smoker Years Smokin Packs Smoked per Day: 1 Hx Smoking Cessation Date: 08/14/20 Hx Tobacco Use: Yes Hx Smoking Exposure: Yes - Alcohol Use Alcohol Usage: Yes - ETOH ABUSE - Substance Abuse Hx Substance Use: No - Occupation Occupation (List type of work in comments):: Employed - Hobbies, Recreation, Social Activities Hobbies: Sports, Hiking, Walking Recreational Activities: I am able to engage in most, but not all activities Social Environment - Status Marital Status: - Current Living Arrangements Living Environment:: Spouse - Children How many children do you have?: 2 Do any of your children live nearby?: Yes - Safety Do you feel safe in your surroundings?: Yes - Assistance Do you need any assistance at home?: NO Review of Systems - Review of Systems Hints: Right click = Denies (Slash). Left click = Reports ([place]) Review of Present Symptoms: Reports: Shortness of Breath with Exertion - CAN TELL NEEDS TO EXERCISE AND GET IN SHAPE BEFORE RETURNING TO WORK., Appetite - Normal, Appetite - Special Diet - LOW FAT, LOW SODIUM, Sleep - Normal. Denies: Dizziness/Lightheadedness, Fatigue, Heart Arrhythmia/Irregularities - Pain Is Patient Pain Free?: No Pain Location: neck, back - CHRONIC NECK AND BACK PAIN Pain Level: 4/10 - ARTHRITIC JOINT PAIN PARTICULARLY BAD ON RAINING DAMP DAYS. Risk Factor Assessment - Chief Complaint Chief Complaint: 55M OF DR[address] DYER WHO PRESENTS TO CARDIAC REHAB TODAY FOLLOWING RECENT NSTEMI AND PCI PLACEMENT ON 08/14/2020 - Vital Signs Temperature: 97.7 F Respiratory Rate: 16 Pulse Ox: 97 Blood Pressure: 142/80 - Pulse Pulse Rate: 78 - Hypertension Blood Pressure Sitting - Left Arm: 142/80 - Blood Cholesterol/Lipids Total Cholesterol (mg/dL) Goal = less than 200 mg/dL: 150 - 08/14/2020 HDL Cholesterol (mg/dL) Goal = less than 40 mg/dL: 67 LDL Cholesterol (mg/dL) Goal = less than 70 mg/dL: 114 Triglycerides (mg/dL) Goal = less than 150 mg/dL: 160 - Obesity Height: 5 ft 6 in Weight:: 169 lb Weight in Pounds: 169.0 lbs Weight Source: Standing Scale Body Mass Index (BMI): 27.2 Nutritional Referral for Obesity: No - Physical Inactivity Physical Inactivity: Physically demanding job - Risk Stratification Risk Guidelines: Lowest Risk: Risk Factor for Smoking, Risk Factor for Dyslipidemia, Risk Factor for Diabetes, Risk Factor for Obesity, Risk Factor for Sedentary Lifestyle, Risk Factor for Depression, Moderate Risk: Risk Factor for Hypertension - For Smoking Smoking Risk Guidelines: Smoking Low Risk: None or quit greater than 6 months ago. Smoking Moderate Risk: Smoker or quit 6 months or less ago. Smoking High Risk: Smoker - For Dyslipidemia Dyslipidemia Risk Guidelines: Low Risk: Moderate Risk: High Risk: 15-25% fat 25.1-29% fat >/= 30% fat. <7% sat fat 7-9% sat fat >9% sat fat. <150 mg chol 150-299 mg chol >/= 300 mg chol. LDL <100 LDL 100-129 LDL >/= 130. Chol/HDL ratio <5.0 Chol/HDL ratio 5.0-6.0 Chol/HDL ratio >6.0. Triglycerides <100 Triglycerides 100- 149 Triglycerides >/= 150 - For Diabetes Mellitus Diabetes Risk Guidelines: Diabetes Low Risk: HgA1c <6.5% and/or FBG <120. Diabetes Moderate Risk: HgA1c 6.6-7.9% and/or FBG 120-180. Diabetes High Risk: HgA1c >/= 8% and/or FBG >180 - For Obesity/Overweight Obesity/Overweight Risk Guidelines: Obesity Low Risk: BMI <25.0. Obesity Moderate Risk: BMI 25-29.9. Obesity High Risk: BMI >/= 30.0 - For Hypertension Hypertension Risk Guidelines: Hypertension Low Risk: Systolic <120 and Diastolic <80. Hypertension Moderate Risk: Systolic 120-139 and Diastolic 80-89. Hypertension High Risk: Systolic >/= 140 and Diastolic >/= 90 - For Sedentary Lifestyle Sedentary Lifestyle Risk Guidelines: Sedentary Lifestyle Low Risk: >/= 1,500 kcal/week. Sedentary Lifestyle Moderate Risk: 700-1,499 kcal/week. Sedentary Lifestyle High Risk: < 700 kcal/week - For Depression Depression Risk Guidelines: Depression Low Risk: Not clinically depressed. Depression Moderate Risk: Mildly depressed. Depression High Risk: Clinically depressed Motivation - Motivation to Participate On a scale of 1 to 10, how prepared are you to commit to attending program?: 10 What do you see as barriers to successfully being able to complete the program?: WORK; What do you see as the benefits of succesfully completing the program? In other words, what do you hope to get out of participating in the program?: GETTING BETTER, BENEFITING MY HEALTH Are there issues you are dealing with that will interfere with completing the program?: NO Do you have a spouse or signficant other, family or friends who will help support you to complete the program?: YES
[2020-08-22 10:09] VITALS: BP 142/80; PULSE 78; RESP 16; TEMP 36.5; O2SAT 97; BMI 27.2
[2020-08-22 10:39] VITALS: BP 142/80; BMI 27.2
== END ==
PROVIDERS: PCP Family Medicine; Referring Provider Specialist; Visit Provider Specialist
DX: I25.10 Atherosclerotic heart disease of native coronary artery without angina pectoris (principal); Z95.5 Presence of coronary angioplasty implant and graft; I10 Essential (primary) hypertension; Z79.82 Long term (current) use of aspirin; Z79.899 Other long term (current) drug therapy; F17.200 Nicotine dependence, unspecified, uncomplicated

== ENCOUNTER 2020-09-01 15:15 | Outpatient (RCR) | payer BC, SELFPAY ==
[2020-08-22 10:09] VITALS: BMI 27.2
[2020-08-22 10:39] VITALS: BMI 27.2
== END 2020-09-02 23:59 ==
LOC: CR 15:15
PROVIDERS: PCP Family Medicine; Referring Provider Specialist; Visit Provider Specialist
DX: I25.10 Atherosclerotic heart disease of native coronary artery without angina pectoris (principal); Z95.5 Presence of coronary angioplasty implant and graft
CPT/HCPCS: 93798

== ENCOUNTER 2020-09-04 06:22 | Outpatient (RCR) | payer BC, SELFPAY ==
[2020-08-22 10:39] VITALS: BMI 27.2
[2020-08-30 11:22] VITALS: BMI 28.0
--- NOTE | 2020-09-22 07:23 | CR.ITP_ITS ---
Exercise - 30-day Assessment - Visit Date of Eval: 09/22/20 Session #:: 6 Comments:: Patient on medical hold per Dr. Christie's office. He has had medication changes and recent flare-up of his Psoratic arthritis. - Physician Prescribed Exercise Modalities: Treadmill, Airdyne, NuStep Frequency: 3x/week for 12 weeks [36 sessions] Intensity: 60-80% of age predicted maximum heart rate reserve Current METSs:: 4.5 increase from 3.5 Target Heart Rate:: 106-139 Current RPE:: 11-12 Maximum Excercise HR:: 130 Resting Blood Pressure: 136/68 - Dr. Christie to address BPs Maximum Exercise Blood Pressure: 144/74 EKG Type: NST to sinus tach without ectopy - Outcomes & Goals Goals:: Verbalizes understanding of THR, RPE & goal METS by session 6, Documents in home exercise log/reports 30 min aerobic 5 day/wk by DC, Demonstrates accurate pulse taking by DC - Intervention & Plan Exercise Program Goals: Instruct on personal THR & RPE, Instruct on MET level & personal MET goal, Show patient to take own pulse /validate performance until accurate, Instruct on home exercise - 30-day Reassessments 30 day Reassessments:: Progressing - Physical Activity Home Exercise Physical Activity - Home Exercise: Safe Exercise, Warm-up, Self-monitoring, Cool-Down, Home Exercise > 30 min Daily, Sitting Time <3 hours/daily - Outcomes & Goals Outcomes/Goals: Demonstrates correct Warm-up/exercise Cool-Down (S3) if = 2.5 METs, Verbalizes symptoms of exercise intolerance by Session 3 (S3), Demonstrate safe equipment use (S3) & follows exercise prescrition (6) - Intervention & Plan Plan/Intervention: Instruct warm-up & cool-down if exercising at > 2 METs, Instruct on symptoms of exercise intolerance & actions to take, Instruct & monitor on saf, Assess intial functional capacity & safety risk - 30-day Reassessments 30 day Reassessments:: Progressing Nutrition - 30-Day Assessment - Program Goals Nutrition Program Goals: LDL <100 optimal. 100 - 129 Near optimal. 130 - 159 Borderline High. 160 - 189 High. Total Cholesterol <200 desirable. 200 - 239 Borderline High. >/= 240 High. HDL < 40 Low >/=60 High. Triglycerides <150 desirable. <199 optimal. VlDL 5 - 40. HgbA1C <7%. BMI <25 Patient has diagnosis of Hyperlipidemia (ICD E78)?: Yes - Visit Date of Assessment:: 09/22/20 Session #:: 6 - no recent labs since admission - Cholesterol/Lipids Determine presence & major risk factors that modify LDL goal: Cigarette smoking, Hypertension or hypertensive medication, Family history of premature CHD in Male < 55 years: female <65 yearsFa, Age men > 45 years; women >/= 55 years Outcomes/Goals: Pt IDs own risk factors & lifestyle modifications by Session 10, Verbalizes symptoms of angina & response by session 3., Pt independently manages Intervention/Plan: Instruct on personal lipid levels & lipid goals/NCEP guidelines, Instruct on cholesterol Referral to dietitian:: No - Patient declined services 30-day Reassessments:: Progressing - Diabetes (Other Core Measures) Diabetes Type: Not Applicable - Weight Mgt (Other Care) Not Applicable: Yes Height: 5 ft 6 in Weight:: 173 lb BMI: 27.9 Diagnosis Overweight/Obesity BMI> 30% ICD-10 E66: No Diagnosis High BMI/Morbid Obesity BMI> 35% ICD-10 Z68: No Outcomes/Goals: Pt sets, maintains & shows weight loss goal & trend during rehab Intervention/Plan: Instruct on ideal BMI & set weight loss goal w/patient 30 day Reassessments:: Progressing - Healthy Eating Habits Will attend diet classes:: Yes Outcomes/Goals:: Consume diet rich in vegs,fruits,whole grain/high fiber,fish,lean meat, Limit sat/trans fats,cholesterol & added salts & sugars Intervention/Plan:: Assess current eating habits 30-day Reassessments:: Progressing Medical- 30-Day Assessment - Visit Date of Eval: 09/22/20 Session #:: 6 - Medication Compliance Preventative Medication(s):: Aspirin, Ticagrelor/P2Y12 inhibitor, Statin/lipid, Beta anai H/O mental health issues: depression, anxiety, or addiction?: No Doesn?t believe in the benefits of treatment?: No Believes medications are unnecessary or harmful?: No Has a concern about medication side effects?: No Expresses concern over the cost of medications?: No Outcomes/Goals: Verbalizes medications,desired effect & common side effects @ DC, Pt self-reports following medication regimen, Keeps card in wallet w/medications listed by DC Interventions/plans: Instruct on medication effects & side effects, Review medication list w/patient every two weeks, Instruct importance of taking meds as ordered & assist problem solving 30-day Reassessments:: Progressing - Tobacco Use Tobacco Use: Cigarettes How long ago did you quit using tobacco products?: Less than 6 months ago How many cigarettes do you smoke per day?: 0 Do you use smokeless tobacco?: No Outcomes/Goals: Smoking cessation achieved or maintained by discharge, Identify aids/strategies for achieving smoking cessation by session 6 Comments: Support of Smoking Cessation Program at [facility] provided to patient. Interventions/plan: Instruct on effects of smoking & provide smoking cessation resource, Assist pt to set quit date & provide encouragement, Assist pt to develop strategies to achieve/maintain quit date, Assist pt w/nicotine replacement & medication for cessation success 30-day Reassessments:: Progressing - Hypertension Hypertension Diagnosis:: Hypertension ICD-10 I10 Resting Blood Pressure:: 136/68 [employer] Hypertension Guidelines: [employer] [place] [employer] Hypertension Guidelines. Normal BP Less than 120/80. Elevated BP 120/80. Hypertension Stage 1: BP 130-139/80-89. Hypertesnion Stage 2: BP 140 or higher/90 or higher. Hypertension Crisis: BP higher than 180/120 Peak Exercise Blood Pressure:: 144/74 Outcomes/Goals: Able to verbalize/achieve optimal blood pressure <130/80, Incorporates diet changes & exercise for blood pressure control by DC Interventions/plan: Instruct on optimal blood pressure, hypertension & medications, Instruct on effects of sodium, alcohol, stress, exercise &hypertension 30 day Reassessments:: Progressing - Tobacco Cessation Referral Smoking Cessation Referral:: Yes Individual Education/Counseling:: No Education Schedule Given:: Yes Psychosocial - 30-Day Assess - VIsit Date of Eval: 09/22/20 Session #:: 6 Not Applicable: Yes History of previous Mental disease:: No - Target Goals Target Goals: Assess presence or absence of depression. Using a valid screening tool, maximizes coping skills. Positive support system - Psychosocial Test Tool Used:: PHQ-9 Questionnaire phq-9 Severity: Severity. 1-4 Minimal Depression. 5-9 Mild Depression. 10-14 Moderate Depression. 15-19 Moderately Sever Depression. 20-27 Severe Depression. Rule: - Referral to Behavioral Health PS - Interventions: Yes Attend Stress Management Classes, No Referral to Behavioral Health if PHQ-9 score >9:, No Referral to [facility], No Referral to Physician if PHQ-9 if score is 5-9: - Outcomes/Goals: See list Psychosocial Outcomes/Goals:: ID's personal stressors & 2 strategies to manage stress by discharge - Intervention/Plan: See List Interventions/Plan:: Assess stressors,coping strategies & signs of derpression on admission, Instruct/assist pt to develop coping & personal stress Mgt strategies, Instruct patient to recognize signs & symptoms of depression, Instruct patient to recog - 30-day Reassessments: 30 day Reassessments:: Progressing Patient Health Questionnaire 30-Day Re-eval Assessment 1. Little interest or pleasure in doing things: Several days 2. Feeling down, depressed, or hopeless: Not at all 3. Trouble falling or staying asleep, or sleeping too much: Several days 4. Feeling tired or having little energy: More than half the days 5. Poor appetite or overeating: Not at all 6. Feeling bad about yourself -- or that you are a failure or have let yourself or your family down: Not at all 7. Trouble concentrating on things, such as reading the newspaper or watching television: Not at all 8. Moving or speaking so slowly that other people could have noticed. Or the opposite - being so fidgety or restless that you have been moving around a lot more than usual: Not at all 9. Thoughts that you would be better off , or of hurting yourself in some way: Not at all How difficult have these problems made it for you to do your work, take care of things at home, or get along with other people?: Not difficult at all Total Score: 4 Self-Efficacy 30-Day Re-eval Assessment We would like to know how confident you are in doing certain activities. Please select your confidence level for:: Select your confidence level for the following using the scale 1-10 where 1 is not at all confident and 10 is totally confident. Your score is the average of all 6 responses. Fatigue: How confident are you that you can keep the fatigue caused by your disease from interfering with the things you want to do? Select Number: 10 Physical Discomfort or Pain: How confident are you that you can keep the physical discomfort or pain of your disease from interfering with the things you want to do? Select Number: 10 Emotional Distress: How confident are you that you can keep the emotional distress caused by your disease from interfering with the things you want to do? Select Number: 10 Other Symptoms or Health Problems: How confident are you that you can keep other symptoms or health problems from interfering with the things you want to do? Select Number: 10 Different Tasks and Activities: How confident are you that you can do the different tasks and activities needed to manage your health condition so as to reduce your need to see a doctor? Select Number: 10 Medication: How confident are you that you can do things other than just taking medication to reduce how much your illness affects your everyday life? Select Number: 10 Total Score:: 10
[2020-09-22 07:32] VITALS: BP 136/68; BP 144/74; BMI 27.9
== END 2020-10-02 23:59 ==
LOC: CR 06:22
PROVIDERS: PCP Family Medicine; Referring Provider Specialist; Visit Provider Specialist
DX: I25.10 Atherosclerotic heart disease of native coronary artery without angina pectoris (principal); Z95.5 Presence of coronary angioplasty implant and graft
CPT/HCPCS: 93798

== ENCOUNTER 2020-09-22 16:04 | Emergency (ER) | payer BC, SELFPAY ==
[2020-08-30 11:22] VITALS: BMI 28.0
[2020-09-22 07:32] VITALS: BMI 27.9
[2020-09-22 16:04] VITALS: BP 168/86; PULSE 83; RESP 15; TEMP 36.4; O2SAT 95; O2SAT 97; BMI 29.3
--- NOTE | 2020-09-22 16:20 | EKG12_ITS ---
Test Reason : CP Blood Pressure : / mmHG Vent. Rate : 075 BPM Atrial Rate : 075 BPM P-R Int : 166 ms QRS Dur : 070 ms QT Int : 356 ms P-R-T Axes : 067 071 058 degrees QTc Int : 397 ms Normal sinus rhythm Normal ECG Confirmed by LEXII NUNEZ MD ([id number]), offline editor VENESSA PINEDA ([id number]) on 09/25/2020 9:49:53 AM Referred By: KIERA Confirmed By:LEXII NUNEZ MD
--- NOTE | 2020-09-22 16:35 | RAD_ITS ---
STUDY: X-RAY CHEST REASON FOR EXAM: Male, 55 years old. CHEST PAIN. MT WITH STENTS IN AUGUST 2020. TECHNIQUE: Single AP portable view of the chest. COMPARISON: 08/13/2020. FINDINGS: The lungs are clear and expanded. There is no demonstrated pleural abnormality. Normal size heart. Normal mediastinum and anahi. Normal visualized pulmonary arteries. Normal visualized aortic arch and descending thoracic aorta. Normal visualized thoracic spine. Normal visualized ribs, clavicles, and shoulders. There is no demonstrated abnormality of the visualized soft tissue structures of the upper abdomen. RAD/Chest 1 View (Portable) IMPRESSION: Normal x-ray examination of the chest. Electronically Signed: Sujata Ventura MD at 17:13 EST Tel , Service support ,
--- NOTE | 2020-09-22 16:39 | ED.DCSUM_ITS ---
History of Present Illness Informant: Patient, EMS Onset: Today Activity at onset: Sleep Timing: Continuous Quality: Sharp, Stabbing Location: Substernal, Left Chest Current Severity: Mild Maximum Severity: Severe Worsened By: Nothing Relieved By: Nothing Associated Symptoms: Negative for: Nausea, Vomiting, Diaphoresis, Dyspnea, Cough, Fever, Lightheadedness, Acid Reflux, Palpitations Narrative: 55-year-old male past medical history of coronary artery disease with stenting to his circumflex about a month ago after an episode of unstable angina that brought him into the hospital presents to the emergency department with chest pain. Patient woke up this morning and he states he did not feel well it a sore throat he had some congestion and was tired so he called off of work. He has a history of chronic sinusitis and was set to undergo surgery for that but it was postponed due to his stenting from his episode of unstable angina. He woke up about an hour prior to arrival from sleep with sharp stabbing pain in his substernal chest and the left side of his chest. Patient states that it lasted 15 or 20 minutes but squad was called prior to the resolution however when they arrived he was pain-free. Patient was nervous because when he had his previous episode of unstable angina it woke him up from sleep however he states today it felt different than that. Otherwise he has been back to work he has not had shortness of breath he has not had any exertional symptoms over the last several weeks no cough or fever and he has no complaints at this time. Has been compliant with his Plavix. He has been compliant with his other medications. He has stopped smoking. Prior Similar Symptoms: Yes, With Prior MD Recent Illness/Hospitalization: Yes CVD Risk Factors: Hypertension, Hypercholesterolemia, Smoking. Negative for: Diabetes, Family History 1' </=55 PE Risk Factors: Negative for: Recent Travel/Surgery, Recenet Immobilization, Prior DVT or PE, Cancer, OCP + Smoking + >/=35 TAD Risk Factors: Negative for: Marfan's Syndrome, Hypertension, Family History <Jerson Garland - Last Filed: 09/22/20 17:18> <Jose Eduardo Marinelli - Last Filed: 09/22/20 20:14> Chief Complaint: Chest Pain Past Medical History Prior records reviewed: Yes Past Medical History: - - COPD CAD hypertension hyperlipidemia Surgical History: angioplasty, - - Neck surgery with anterior approach per patient description, left carpal tunnel surgery. Smoking Status: Former smoker Alcohol: Occasional Drugs: None - Family History Maternal Family History: Reports: Diabetes, - - Multiple sclerosis Paternal Family History: Reports: Heart Disease, Hypertension <Jerson Garland - Last Filed: 09/22/20 17:18> <Jose Eduardo Marinelli - Last Filed: 09/22/20 20:14> - Allergies and Home Meds Allergies/Adverse Reactions: Allergies ticagrelor [From Brilinta] Adverse Reaction (Intermediate, Verified 09/13/20 13:46) SOB, easy bleeding Primary Care Physician: Saran Landry DO [Primary Care Provider] - Review of Systems All systems negative except as indicated General: Denies: Chills, Fever, Sweats Eyes: Denies: Visual changes - bilaterally, Diplopia ENT: Denies: Rhinorrhea, Sore throat Cardiovascular: Reports: Chest pain. Denies: Palpitations, Heart racing Respiratory: Denies: Dyspnea, Cough, Sputum, Dyspnea on exertion, Orthopnea, Paroxysmal nocturnal dyspnea Gastrointestinal: Denies: Abdominal pain, Nausea, Vomiting, Diarrhea, Melena, Hematochezia Genitourinary: Denies: Dysuria, Hematuria, Frequency Musculoskeletal: Denies: Back pain, Swelling, Extremity Pain Skin: Denies: Rash, Wounds Neurological: Denies: Headache, Weakness, Numbness <Jerson Garland - Last Filed: 09/22/20 17:18> Physical Exam Vital Signs/Narrative: Vital Signs Temp Pulse Resp BP Pulse Ox 09/22/20 16:04 97.6 F L 83 15 168/86 H 97 Inital Vital Signs reviewed: Yes General: Well nourished, Well developed, No Acute Distress Head: Normocephalic, Atraumatic Eyes: Perrl, EOMI ENT: Moist mucous membranes, No rhinorrhea Neck: Supple, Nontender Cardiovascular: Regular rate, Regular rhythm, No murmurs Respiratory: No distress, CTA bilaterally, Chest nontender Abdomen: Soft, Nontender, Nondistended, Normal bowel sounds Back: Nontender, Normal Inspection Extremities: Nontender, No edema. Negative for: Tenderness, Edema, Calf Tenderness Skin: Normal color, No rash Neurological: Alert, Oriented x3, Cranial nerves II-XII grossly intact, Normal Strength, Normal Sensation Psychological: Normal affect, Normal Mood <Jerson Garland - Last Filed: 09/22/20 17:18> Vital Signs/Narrative: Vital Signs Pulse Resp BP Pulse Ox 09/22/20 19:35 74 16 146/77 H 99 09/22/20 18:06 75 20 H 138/90 H 96 09/22/20 17:20 77 18 126/75 H 95 <IsisJose Eduardo - Last Filed: 09/22/20 20:14> Diagnostic/Tx/Re-eval Chest X-Ray - ED: 1 View, Read by ED Physician, Read by Radiologist, No Acute Disease Impressions Chest X-Ray 09/22/20 16:35 IMPRESSION: Normal x-ray examination of the chest. Electronically Signed: Sujata Ventura MD at 17:13 EST Tel , Service support , 09/22/20 16:35 Chest 1 View (Portable) [RAD] Stat Laboratory Results 09/22/20 09/22/20 15:51 15:51 WBC 10.2 RBC 4.19 L Hgb 13.5 Hct 38.6 L MCV 92.1 MCH 32.2 H MCHC 35.0 RDW Std Deviation 42.6 RDW Coeff of Padmini 12.7 Plt Count 174 MPV 8.9 Immature Gran % (Auto) 0.600 Neut % (Auto) 76.9 H Lymph % (Auto) 12.8 L [place] % (Auto) 8.3 Eos % (Auto) 0.9 Baso % (Auto) 0.5 Absolute Neuts (auto) 7.8 H Absolute Lymphs (auto) 1.30 Nucleated RBC % 0 Sodium 131 L Potassium 3.9 Chloride 99 Carbon Dioxide 23.0 Anion Gap 9 BUN 20 H Creatinine 1.52 H Estim Creat Clear Calc 48.97 Est GFR (MDRD) Af Amer 61 Est GFR (MDRD) Non-Af 51 L BUN/Creatinine Ratio 13.2 Glucose 98 Calcium 8.4 L Troponin I < 0.015 - Rhythm Strip Rhythm Strip: Sinus Rhythm Rate: 75 Ectopy: None - EKG Initial EKG Interpretation: Sinus Rhythm, No Acute Injury Pattern Prior: Unchanged Treatment: Aspirin Repeat Eval: Pain Free SYLVIA Risk: H/O CAD, ASA within 7 days Score: 2 - Medical Decision Making EKG obtained on arrival was sinus rhythm rate of 75 bpm. No acute ischemic changes. Unchanged from previous. Patient is pain-free on arrival. He was given aspirin. CBC was unremarkable. BMP shows a creatinine of 1.2 which is slightly elevated from the patient's baseline. He was given a liter of IV fluids. Ejection fraction on his cardiac catheterization was 60%. Troponin was negative. Chest x-ray showed chronic changes no acute findings. Repeat exam patient states he is pain-free. We will obtain a 3-hour troponin. This is pending. He is resting comfortably. 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 I agree with plan and work-up. I perform my own [id number] evaluation. Sudden sharp chest pain prior to arrival resolved on arrival. Status post STEMI 6 weeks ago with 2 stents. He is on aspirin currently Plavix with no missed doses. States 2 weeks ago was transitioned to Plavix from Brilinta due to easily bruising. He currently does not smoke. No cough. Exam alert nontoxic patient no acute distress heart was regular lungs were clear no swelling. EKG was sinus with no acute changes cardiac work-up with troponin x2 was negative he remained symptom- free. Did review his cath report, there was no minimal disease in the other vessels, he is taking his aspirin and Plavix per history therefore lower suspicion of any stent complications. He remains symptom-free, his labs did note creatinine 1.5 that is new is given IV fluids in the ED. He denies any recent vomiting or diarrhea. 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 All questions were answered. <Jose Eduardo Marinelli - Last Filed: 09/22/20 20:14> ED Disposition <Jerson Garland - Last Filed: 09/22/20 17:18> <Jose Eduardo Marinelli - Last Filed: 09/22/20 20:14> - Plan for ED Patient: Disposition: Home or Assisted Living Diagnosis: Chest pain, Renal insufficiency, mild Instructions: ED Chest Pain Atypical Unkn Cause Referrals: Saran Landry DO [Primary Care Provider] - 3-5 Days Shameka Christie MD [STAFF PHYSICIAN] - 3-5 Days Additional Instructions: Cr. 1.5. S/p IVF. Follow up with your doctors for recheck.
[2020-09-22 16:47] LABS: Absolute Neutrophil Count 7.8 X10^3/uL (2.0-7.7); Basophil# 0.05 X10^3/uL; Basophil% 0.5 % (0-1); Eosinophil# 0.09 X10^3/uL; Eosinophils% 0.9 % (0-5); Hematocrit 38.6 % (40-54); Hemoglobin 13.5 g/dL (13.0-16.5); Lymphocyte % 12.8 % (19-41); Mean Corpuscular Hgb 32.2 pg (27.0-32.0); Mean Corpuscular Volume 92.1 fL (80-94); Mean Platelet Vol. 8.9 fl (6.2-12.0); Monocyte# 0.84 X10^3/uL; Monocyte% 8.3 % (0-10); NRBC Flagged by Analyzer 0 % (0-5); Neutrophil # 7.81 X10^3/uL (2.7-7.7); Neutrophil % 76.9 % (47-70); Platelet Count 174 K/mm3 (150-450); RBC Distribution Width CV 12.7 % (11.6-14.6); RBC Distribution Width SD 42.6 fl (35.1-43.9); Red Blood Count 4.19 M/mm3 (4.6-6.2); White Blood Count 10.2 K/mm3 (4.4-11.0)
[2020-09-22] MEDS: Aspirin 81 MG TAB.CHEW 324 MG PO (16:50)
[2020-09-22 17:02] LABS: Anion Gap 9 (5-15); BUN 20 mg/dL (7-18); BUN/Creat Ratio 13.2 RATIO (10-20); Calcium,Total 8.4 mg/dL (8.5-10.1); Chloride 99 mmol/L (98-107); Creatinine, Serum 1.52 mg/dL (0.70-1.30); EST Glomerular Filtration Rate 51 mL/min (>60); Est Glom Filt Rate - Afr Amer 61 mL/min (>60); Estimated Creatinine Clearance 48.97 ml/min; Glucose 98 mg/dL (74-106); Potassium 3.9 mmol/L (3.5-5.1); Sodium Level 131 mmol/L (136-145)
[2020-09-22 17:20] VITALS: BP 126/75; PULSE 77; RESP 18; O2SAT 95
[2020-09-22] MEDS: 0.9% Normal Saline 1,000 ML 999 ML IV (17:39)
[2020-09-22 18:06] VITALS: BP 138/90; PULSE 75; RESP 20; O2SAT 96
[2020-09-22 19:35] VITALS: BP 146/77; PULSE 74; RESP 16; O2SAT 99
[2020-09-22 20:21] VITALS: BP 139/66; PULSE 87; RESP 16; O2SAT 97
== END 2020-09-22 20:25 | disposition home or self-care (01) ==
PROVIDERS: Emergency Provider Physician Assistant Medical; PCP Family Medicine
DX: R07.89 Other chest pain (principal); N28.9 Disorder of kidney and ureter, unspecified; I10 Essential (primary) hypertension; I25.10 Atherosclerotic heart disease of native coronary artery without angina pectoris; I25.2 Old myocardial infarction; E78.00 Pure hypercholesterolemia, unspecified; J44.9 Chronic obstructive pulmonary disease, unspecified; Z95.5 Presence of coronary angioplasty implant and graft; Z79.02 Long term (current) use of antithrombotics/antiplatelets; Z79.82 Long term (current) use of aspirin; Z79.899 Other long term (current) drug therapy; Z87.891 Personal history of nicotine dependence
CPT/HCPCS: 71045; 80048; 84484; 85025; 93005; 96360; 96361; 99285; J7030

== ENCOUNTER → 2020-10-14 06:53 | Outpatient (CLI) | payer BC, SELFPAY ==
[2020-09-22 07:32] VITALS: BMI 27.9
[2020-09-22 16:04] VITALS: BMI 29.3
[2020-10-14 07:42] LABS: AST(SGOT) 20 U/L (15-37); Alanine Aminotransfer ALT/SGPT 42 U/L (16-61); Albumin, Serum 3.9 g/dL (3.2-5.0); Alkaline Phosphatase 89 U/L (45-117); Bilirubin, Direct 0.18 mg/dL (0.00-0.30); Cholesterol 143 mg/dL (200); High Density Lipoprotein 50 mg/dL; Protein, Total 7.9 g/dL (6.4-8.2); Triglycerides 180 mg/dL; Very Low Density Lipoprotein 36 mg/dL (5-40)
== END ==
PROVIDERS: PCP Family Medicine; Visit Provider Physician Assistant Medical
DX: E78.5 Hyperlipidemia, unspecified (principal)
CPT/HCPCS: 36415; 80061; 80076

== ENCOUNTER 2022-02-04 08:33 | Outpatient (CLI) | payer OTHER, SELFPAY ==
[2022-02-04 10:15] LABS: AST(SGOT) 28 U/L (15-37); Alanine Aminotransfer ALT/SGPT 48 U/L (16-61); Albumin, Serum 3.6 g/dL (3.2-5.0); Alkaline Phosphatase 77 U/L (45-117); Bilirubin, Direct 0.16 mg/dL (0.00-0.30); Cholesterol 150 mg/dL (200); Globulin 3.7 g/dL (2.2-4.2); High Density Lipoprotein 49 mg/dL; Protein, Total 7.3 g/dL (6.4-8.2); Triglycerides 176 mg/dL; Very Low Density Lipoprotein 35 mg/dL (5-40)
== END 2022-02-04 23:59 | disposition home or self-care (01) ==
LOC: LAB 08:34
PROVIDERS: PCP Family Medicine; Referring Provider Internal Medicine Cardiovascular Disease; Visit Provider Internal Medicine Cardiovascular Disease
DX: E78.00 Pure hypercholesterolemia, unspecified (principal)
CPT/HCPCS: 36415; 80061; 80076

== ENCOUNTER 2022-09-24 07:12 | Outpatient (CLI) | payer OTHER, SELFPAY ==
[2022-09-24 07:53] LABS: AST(SGOT) 33 U/L (15-37); Alanine Aminotransfer ALT/SGPT 55 U/L (16-61); Albumin, Serum 3.8 g/dL (3.2-5.0); Alkaline Phosphatase 73 U/L (45-117); Bilirubin, Direct 0.22 mg/dL (0.00-0.30); Cholesterol 141 mg/dL (200); Globulin 3.8 g/dL (2.2-4.2); High Density Lipoprotein 60 mg/dL; Protein, Total 7.6 g/dL (6.4-8.2); Triglycerides 140 mg/dL; Very Low Density Lipoprotein 28 mg/dL (5-40)
== END 2022-09-24 23:59 | disposition home or self-care (01) ==
LOC: LAB 07:16
PROVIDERS: PCP Family Medicine; Referring Provider Internal Medicine Cardiovascular Disease; Visit Provider Internal Medicine Cardiovascular Disease
DX: E78.00 Pure hypercholesterolemia, unspecified (principal)
CPT/HCPCS: 36415; 80061; 80076

== ENCOUNTER → 2023-12-22 | Outpatient (CLI) | payer MEDICARE, SELFPAY ==
--- OUTSIDE RECORDS SUMMARY | 2023-12-22 11:44 | XMS RPT_ITS | CCD ---
Author Name Unknown Address [address] [place] [address] Organization [facility] Care Team Providers Care Human Resources File Clerk Name Role Phone HORTENCIA PALMER Unavailable Unavailable HORTENCIA PALMER Unavailable Unavailable NO REFERRING DR Unavailable Unavailable HORTENCIA PALMER Unavailable Unavailable HORTENCIA PALMER Unavailable Unavailable Nima Landry DO Primary Care Provider [phone] NIMA LANDRY Primary Care Unavailable CLARISA VILLARREAL Admitting Unavailable NIMA LANDRY Primary Care Unavailable CLARISA VILLARREAL Referring Unavailable CLARISA VILLARREAL Attending Unavailable NIMA LANDRY Primary Care Unavailable CLARISA VILLARREAL Attending Unavailable CLARISA VILLARREAL Attending Unavailable NIMA LANDRY Primary Care Unavailable Allergies Allergy Classification Reported Allergen(s) Allergy Type Date of Onset Reaction(s) Facility (1 source) Ticagrelor; Translations: [TICAGRELOR] Drug Allergy 09-13-2020 [facility] Repository Medications Current Medications Medication Drug Class(es) Dates Sig (Normalized) Sig (Original) 8 hr acetaminophen 650 mg extended release oral tablet (1 source) take 1 tablet by mouth every eight hours as needed acetaminophen (TYLENOL ER) 650 MG CR tablet Take 650 mg by mouth every 8 (eight) hours as needed for pain . 0 Active apremilast 30 mg oral tablet (1 source) Start: 04-29-2021 take 1 tablet by mouth twice daily Otezla 30 mg Tab Take 30 mg by mouth 2 (two) times a day . 0 04/29/2021 Active aspirin 81 mg delayed release oral tablet (1 source) Platelet Aggregation Inhibitor, Nonsteroidal Anti-inflammatory Drug Start: 05-02-2021 take 1 tablet by mouth once daily aspirin 81 MG EC tablet Take 81 mg by mouth daily . 0 05/02/2021 Active azaTHIOprine 50 mg oral tablet (1 source) Purine Antimetabolite Start: 05-28-2021 End: 05-28-2022 take 1 tablet by mouth once daily azaTHIOprine (IMURAN) 50 mg tablet Indications: PSA (psoriatic arthritis) ([facility]) Take 1 (one) tablet (50 mg total) by mouth daily . 90 tablet 3 05/28/2021 05/28/2022 Active clopidogrel 75 mg oral tablet (1 source) P2Y12 Platelet Inhibitor Start: 04-26-2021 take 1 tablet by mouth once daily clopidogreL (PLAVIX) 75 mg tablet Take 75 mg by mouth daily . 0 04/26/2021 Active lisinopril 20 mg oral tablet (1 source) Angiotensin Converting Enzyme Inhibitor Start: 04-21-2021 take 1 tablet by mouth once daily lisinopriL (PRINIVIL,ZESTRIL) 20 MG tablet Take 20 mg by mouth daily . 0 04/21/2021 Active metoprolol tartrate 25 mg oral tablet (1 source) beta-Adrenergic Ev Start: 04-27-2021 take 1 tablet by mouth twice daily metoprolol tartrate (LOPRESSOR) 25 MG tablet Take 25 mg by mouth 2 (two) times a day . 0 04/27/2021 Active rosuvastatin calcium 10 mg oral tablet (1 source) HMG-CoA Reductase Inhibitor Start: 05-27-2021 take 1 tablet by mouth once daily rosuvastatin (CRESTOR) 10 MG tablet Take 10 mg by mouth daily . 0 05/27/2021 Active sulfaSALAzine 500 mg oral tablet (1 source) Aminosalicylate Start: 05-28-2021 End: 05-28-2022 take 1 tablet by mouth four times daily sulfaSALAzine (Azulfidine) 500 mg tablet Indications: PSA (psoriatic arthritis) ([facility]) Take 1 (one) tablet (500 mg total) by mouth 4 (four) times a day . 360 tablet 3 05/28/2021 05/28/2022 Active Problems Active Problems Problem Classification Problem Date Documented Da te Episodic/Chronic Esophageal disorders (1 source) Esophageal reflux; Translations: [ESOPHAGEAL REFLUX] Onset: 04-19-2015 Chronic Essential hypertension (1 source) Unspecified essential hypertension; Translations: [HYPERTENSION NOS] Onset: 04-19-2015 Chronic Nutritional deficiencies (1 source) Vitamin D deficiency; Translations: [Vitamin D deficiency, unspecified] Chronic Osteoarthritis (1 source) Localized, primary osteoarthritis of the wrist; Translations: [Primary osteoarthritis, unspecified hand] Chronic Other bone disease and musculoskeletal deformities (1 source) Degenerative joint disease involving multiple joints; Translations: [Other hypertrophic osteoarthropathy, multiple sites] Chronic Other inflammatory condition of skin (1 source) Other psoriasis; Translations: [OTHER PSORIASIS] Onset: 04-19-2015 Chronic Other inflammatory condition of skin (1 source) Psoriatic arthritis; Translations: [Arthropathic psoriasis, unspecified] Chronic Other non-traumatic joint disorders (1 source) Arthropathy, unspecified, site unspecified; Translations: [ARTHROPATHY NOS-UNSPEC] Onset: 04-19-2015 Chronic Other non-traumatic joint disorders (1 source) Joint pain; Translations: [Pain in unspecified joint] Episodic Spondylosis; intervertebral disc disorders; other back problems (4 sources) Degeneration of cervical intervertebral disc; Translations: [Displacement of cervical intervertebral disc without myelopathy] Onset: 04-19-2015 Chronic Substance-related disorders (1 source) Tobacco use disorder; Translations: [TOBACCO USE DISORDER] Onset: 04-19-2015 Chronic Past or Other Problems Problem Classification Problem Date Documented Date Episodic/Chronic Joint disorders and dislocations; trauma-related (1 source) Dislocation of acromioclavicular joint; Translations: [Unspecified dislocation of unspecified acromioclavicular joint, initial encounter] Onset: 07-27-2013 05-28-2021 Episodic Other connective tissue disease (1 source) Impingement syndrome of left shoulder region; Translations: [Impingement syndrome of left shoulder] Onset: 07-26-2013 05-28-2021 Episodic Unclassified (1 source) CERVICAL DISC DEGEN; Translations: [CERVICAL DISC DEGEN] Onset: 04-19-2015 Results Test Name Value Interpretation Reference Range Facil ity Vital Signs Date Time Vital Sign Value Performing Clinician Qi julien 05-28-2021 08: Body height 167.6 cm Clarisa Villarreal MD Work Phone: [facility] 05-28-2021 08:22-0400 Body mass index (BMI) [Ratio] 27.44 kg/m2 Clarisa Villarreal MD Work Phone: [facility] 05-28-2021 08:22-0400 Body weight 77.11 kg Clarisa Villarreal MD Work Phone: [facility] 05-28-2021 08:22-0400 Diastolic blood pressure 79 mm[Hg] Clarisa Villarreal MD Work Phone: [facility] 05-28-2021 08:22-0400 Heart rate 81 /min Clarisa Villarreal MD Work Phone: [facility] 05-28-2021 08:22-0400 Systolic blood pressure 136 mm[Hg] Clarisa Villarreal MD Work Phone: [facility] Encounters Encounter Date Encounter Type Care Provider Facility Start: 06-06-2022 ambulatory CLARISA VILLARREAL [facility] Ambulatory Start: 07-25-2021 End: 07-25-2021 ambulatory [facility] Ambulato ry Start: 05-28-2021 End: 05-29-2021 ambulatory [facility] Start: 05-28-2021 End: 06-01-2021 ambulatory [facility] Start: 05-28-2021 End: 05-28-2021 Office outpatient new 45 minutes [facility] Work Phone: [facility] Procedures Date Procedure Procedure Detail Performing Clinician Start: 05-28-2021 Arthrocentesis aspir &/inj small jt/bursa w/o us Clarisa Villarreal MD Work Phone: Start: 04-19-2015 FUSE/REFUSE 2-3 VERTEBRA PROVIDER UNKNOWN Start: 04-19-2015 INS INTERBOD SPINAL DEVC PROVIDER UNKNOWN Start: 04-19-2015 INTRAOP NEUROPHYS MONITR PROVIDER UNKNOWN Start: 04-19-2015 IV DISC EXCISION PROVID ER UNKNOWN Start: 04-19-2015 Other cervical fusio n of the anterior column, anterior technique PROVIDER UNKNOWN Plan of Treatment Date Care Activity Detail Author Start: 07-25-2021 End: 07-25-2021 Patient encounter procedure 07/25/2021 Office Visit Orthopedic Surgery lCarisa Villarreal MD [address] [place] [id number] [phone] [facility] Start: 07-04-2021 Influenza vaccination Sequential Influenza Vaccine (#1) [facility] Start: 2014 Administration of herpes zoster vaccine Zoster Vaccines (1 of 2) [facility] Start: 2014 Screening for malignant neoplasm of colon [facility] Start: 1982 Hepatitis C screening Hepatitis C Screening [facility] Start: 1979 HIV screening HIV Screening [facility] Start: 1976 COVID-19 Vaccine (1) COVID-19 Vaccine (1) [facility] Start: 1976 Depression screening using PHQ-9 (Patient Health Questionnaire 9) score Depression Screening (PHQ9) [facility] Start: 1970 Pneumococcal Vaccine: Ped or At-Risk (1 of 4 - PCV13) Pneumococcal Vaccine: Ped or At-Risk (1 of 4 - PCV13) [facility] Start: 1967 History and physical examination, annual for health maintenance Wellness Visit [facility] Start: 1964 Prostate specific antigen measurement PSA Level [facility] Start: 1964 Tetanus vaccination Tetanus: Every 10yrs [facility] End: 05-28-2022 Hepatitis B core antibody measurement Hepatitis B Core Antibody, Total Lab Routine PSA (psoriatic arthritis) (HCC) 1 Occurrences starting 05/28/2021 until 05/28/2022 [facility] Payers Date Payer Category Payer Unknown [id number] 2009 Unknown [id number] 2009 Unknown [employer] [place] [facility] [place] [id number] 2009-Present [id number] 1964 Unknown [id number] 1964 Unknown [id number] 1964 Unknown [id number] 1964 Unknown [id number] Social History Date Type Detail Facility Start: 05-28-2021 Tobacco smoking stat NHIS Former smoker [facility] End: 08-12-2020 History of tobacco use Current smoker [facility] Start: 05-28-2021 Tobacco use and exposure Current use r [facility] Start: 05-28-2021 Alcohol intake Current drinke r of alcohol (finding) [facility] Start: 05-28-2021 Alcohol Comment occassionaly [facility] Start: 1965 Sex Assigned At Not on file [facility] Exposure to SARS-CoV -2 (event) Not sure [facility] History of Present illness Narrative 05-28-2021 Clarisa Villarreal MD - 05/28/2021 8:30 AM EDT Note Date & Type Note Facility 05-28-2021 History of Presen t illness Narrative Associated Order(s): SM Jt Injection/Arthrocentesis; SM Jt Injection/Arthrocentesis Images from the original note were not included. RHEUMATOLOGY NEW PATIENT VISIT Patients name: Ashley Moyer : 1965 Today's date: 05/28/2021 Reason for visit: Establish care for PsA / Psoriasis versus DJD Disease summary:PsA diagnosed in 2012. Status: not controlled. Serology: +ve -ve Radiology: Current Meds: Otezla 30mg BID Pain control: Prior Meds: Humira 2012 - 2014, stopped as he was undergoing surgery and never restarted HPC: This is a 56 y.o. male with a pmhx of HTN, HLD, h/o MT, h/o tobacco abuse who presents for evaluation of joint pain in the setting of psoriatic arthritis. Patient was previously followed by [facility] for his psoriasis however he has not been seen by them in many years. His primary care physician recently started him on Otezla. He previously had a swatch folder at [facility]. He was treated with biologicals. He feels that it did work well for his joints and skin. However this was temporarily discontinued due to elective surgery and never restarted. Patient was then lost to follow-up. His main complaints today are of bilateral CMC pain and bilateral shoulder pain. He does report some discomfort of his nail bases. No history of uveitis, no history of sacroiliitis. Prior Rheum appts: Dr. Betzaida Hauser at - 2012 - 2014, Rx Humira Interim: I have reviewed the patient's medical history in detail and updated the computerized patient record. Past Medical History: Diagnosis Date Heart disease Hypertension Past Surgical History: Procedure Laterality Date BACK SURGERY CARPAL TUNNEL RELEASE Left heart stent Social History Tobacco Use Smoking status: Former Smoker Quit date: 08/12/2020 Years since quittin.7 Smokeless tobacco: Current User Vaping Use Vaping Use: Never used Substance Use Topics Alcohol use: Yes Comment: occassionaly Drug use: Never Family History Problem Relation Age of Onset Diabetes Mother Multiple sclerosis Mother Arthritis Father Heart disease Father No Known Allergies Outpatient Medications Marked as Taking for the 05/28/21 encounter (Office Visit) with Clarisa Villarreal MD Medication Sig Dispense Refill acetaminophen (TYLENOL ER) 650 MG CR tablet Take 650 mg by mouth every 8 (eight) hours as needed for pain . aspirin 81 MG EC tablet Take 81 mg by mouth daily . clopidogreL (PLAVIX) 75 mg tablet Take 75 mg by mouth daily . lisinopriL (PRINIVIL,ZESTRIL) 20 MG tablet Take 20 mg by mouth daily . metoprolol tartrate (LOPRESSOR) 25 MG tablet Take 25 mg by mouth 2 (two) times a day . Otezla 30 mg Tab Take 30 mg by mouth 2 (two) times a day . rosuvastatin (CRESTOR) 10 MG tablet Take 10 mg by mouth daily . Review of Systems: General Constitutional: Denied fevers, chills, anorexia, weight loss, or night sweats Eyes: denied blurry vision, no dry eyes, no RP ENT: denied nasal drainage, sinus pressure, nasal ulcers Mouth: denied oral ulcers, dry mouth Lymphatics: no new adenopathy in cervical, supraclavicular, axillary, inguinal regions Respiratory: no cough, SOB CV: denied palpitations, chest pain/pressure, PND, orthopnea. GI: denied abd pain, n/v/d, constipation, melena. : denied dysuria, urgency, frequency or hematuria. Skin: as per hpi no rashes or lesions Musculoskeletal: as per HPI Hematologic/lmmunologic: no adenopathy, bleeding, easy bruisiality or recurrent infection. Neurology: Denied new headaches, speech/balance/coordination problems. Denied new focal numbness or weakness of extremities Psych: denied anxiety, depression or mood swings A 10 point review of systems was completed. Physical Exam: BP 136/79 Pulse 81 Ht 5' 6 Wt 77.1 kg (170 lb) BMI 27.44 kg/m Gen: NAD, resting comfortably,Alert, cooperative, no distress, appears stated age HEENT: NCAT, no temporal wasting, EOMI, perrl, anicteric sclerae, mmm, no op lesions Neck: supple, no thyromegaly or LAD, no bruits Lymphatics: no cervical, axillary, or inguinal adenopathy Chest: Good a/e b/l, no added sounds, no respiratory distress CV: RRR, no m/r/g, normal S1, S2 Abd: soft, nontender, nondistended, +BS, no hepatosplenomegaly Ext: no clubbing, cyanosis or edema MSK: Squarring of b/l CMC, No synovitis of the MCPs or PIPs. Crepitus of the knees no effusion or warmth. Skin: no rashes or lesions Neuro: no focal deficits, moves all four extremities Psych: Mood and affect appropriate DATA: I have reviewed lab work and imaging. Labs:reviewed. Imaging: reviewed. Health Maintenance Due Topic Date Due PSA Level Never done Tetanus: Every 10yrs Never done Wellness Visit Never done Depression Screening (PHQ9) Never done COVID-19 Vaccine (1) Never done HIV Screening Never done Hepatitis C Screening Never done Colorectal Cancer Screening Never done Zoster Vaccines (1 of 2) Never done PROCEDURE NOTE: SM Jt Injection/Arthrocentesis Performed by: Clarisa Villarreal MD Authorized by: Clarisa Villarreal MD CPT 68994 - Small Joint Arthrocentesis: Consent given by: Patient Time out: Immediately prior to the procedure a time out was called Timeout performed at: 05/28/2021 8:58 AM Supporting Documentation: Indications: Pain Procedure Details: Location: Thumb Thumb joint: L-cmc. Needle size: 25 G Medication group details: 0.5cc of Lidocaine 1% + 10mg of Triamcinolone Acetonide. Patient tolerance: Patient tolerated the procedure well with no immediate complications SM Jt Injection/Arthrocentesis Performed by: Clarisa Villarreal MD Authorized by: Clarisa Villarreal MD [facility] [id number] - Small Joint Arthrocentesis: Consent given by: Patient Time out: Immediately prior to the procedure a time out was called Timeout performed at: 05/28/2021 8:59 AM Physician or proceduralist has discussed critical or nonroutine steps, procedure duration and anticipated blood loss: Yes Supporting Documentation: Indications: Pain Procedure Details: Location: Thumb Thumb joint: r cmc. Needle size: 25 G Medication group details: 0.5cc of Lidocaine 1% + 10mg of Triamcinolone Acetonide. Patient tolerance: Patient tolerated the procedure well with no immediate complications Medications per area: 0.5cc of Lidocaine 1% + 10mg of Triamcinolone Acetonide. [facility]: [id number] + [id number] A dressing was placed over the site. The patient tolerated the procedure well. No bleeding complications occurred. Clarisa Villarreal MD Assessment & Plan PSA (psoriatic arthritis) - unclear if symptoms mostly due to PsA versus DJD? - Plan: XR Hands Bilateral Ball Catchers 2 Views, HLA-B27 Antigen, Sedimentation Rate, C-reactive protein, Creatinine, serum, Urinalysis, Protein / Creatinine Ratio, Urine, AST, ALT, CBC and differential, M. Tuberculosis by QuantiFERON, Hepatitis C Antibody, Hepatitis B Surface Antigen, Hepatitis B Surface Antibody, Hepatitis B Core Antibody, Total, Thiopurine Methyltransferase Genotyping, - Methotrexate contrdicated on account of etOH on weekends - Start sulfaSALAzine (Azulfidine) 500 mg tablet once a day and increase by 1 tablet per week to goal of 2T twice a day -Low dose azaTHIOprine (IMURAN) 50 mg tablet Vitamin D deficiency - Plan: Vitamin D, Total, 25-OH Primary osteoarthritis involving multiple joints - I explained that the goals of osteoarthritis management are to minimize pain, optimize function, and beneficially modify the process of joint damage. The primary aim is to target modifiable risk factors. Discussed that although there are no approved disease-modifying OA drugs, a wide selection of interventions are available to address pain and function B/L CMC OA - Plan: b/l injections - OT referral for spicca splints - -Explained to patient we will place OT referral to assess for the use of splints for hand OA for pain relief, in particular symptomatic thumb-base OA & to be evaluated for hand exercises to improve function and muscle strength and reduce pain. -Explained to patient that topical therapies such as OTC lidocaine patches, salonpas and diclofenac gel can be very helpful. -Advised OTC topical diclofenac gel, can be used QDS PRN. The patient indicates understanding of these issues and agrees with the plan. Return to clinic in 2 month(s) Telehealth appointments okBenita Villarreal MD Web Production Designer Pomology Teacher Note: To expedite correspondence this note was generated by [employer] voice recognition software. Some grammatical or spelling errors may occur using the system. documented in this encounter [facility] Evaluation note Note Date & Type Note Facility documented in this encounter [facility] Summary Purpose Family History No Family History Records FoundNo Family History Records FoundNo Family History Records Found Advance Directives No Advanced Directives Records FoundDocuments on File Type Date Recorded Patient Human Resources Representative Expl anation Advance Directives and Livin g Will 05/28/2021 12:16 PM Reason for Referral Status Reason Specialty Diagnoses / Procedures Referred By Contact Referred To Contact Authorized Specialty Services Required/[facility] Rehabilitation Diagnoses Primary osteoarthritis involving multiple joints Clarisa Villarreal MD [address] [place] [id number] Rehab [facility] [address] [place] [id number] Additional Source Comments (unrecognized sect ion and content) No Status Records FoundNo Status Records FoundNo Status Records Found INFORMATION SOURCE (unrecogn ized section and content) DATE CREATED AUTHOR AUTHOR'S ORGANIZ ATION 06/02/2021 [facility] DATE CREATED AUTHOR AUTHOR'S ORGANIZ ATION 06/07/2022 [facility] Reason for Visit (unrecogniz ed section and content) FOR RECORDS PERTAINING TO PATIENTS WHO ARE OR HAVE BEEN ENROLLED IN A CHEMICAL DEPENDENCY/SUBSTANCEABUSE PROGRAM, SOME INFORMATION MAY BE OMITTED. This clinical summary was aggregated from multiple sources. Caution should be exercised in using it in the provision of clinical care. This summary normalizes information from multiple sources, and as a consequence, information in this document may materially change the coding, format and clinical context of patient data. In addition, data may be omitted in some cases. CLINICAL DECISIONS SHOULD BE BASED ON THE PRIMARY CLINICAL RECORDS. [facility]. provides no warranty or guarantee of the accuracy or completeness of information in this document.
[2023-12-22 12:32] LABS: AST(SGOT) 22 U/L (15-37); Alanine Aminotransfer ALT/SGPT 38 U/L (16-61); Albumin, Serum 3.9 g/dL (3.2-5.0); Alkaline Phosphatase 77 U/L (45-117); Bilirubin, Direct 0.21 mg/dL (0.00-0.30); Cholesterol 144 mg/dL (200); Globulin 3.8 g/dL (2.2-4.2); High Density Lipoprotein 46 mg/dL; Protein, Total 7.7 g/dL (6.4-8.2); Triglycerides 154 mg/dL; Very Low Density Lipoprotein 31 mg/dL (5-40)
== END | disposition home or self-care (01) ==
LOC: LAB 11:23
PROVIDERS: PCP Family Medicine; Referring Provider Nurse Practitioner Family; Visit Provider Nurse Practitioner Family
DX: E78.00 Pure hypercholesterolemia, unspecified (principal)
CPT/HCPCS: 36415; 80061; 80076

== ENCOUNTER → 2024-04-26 | Outpatient (CLI) | payer MEDICARE, SELFPAY ==
[2024-04-26 11:56] LABS: AST(SGOT) 32 U/L (15-37); Alanine Aminotransfer ALT/SGPT 44 U/L (16-61); Albumin, Serum 3.4 g/dL (3.2-5.0); Alkaline Phosphatase 71 U/L (45-117); Anion Gap 5 (5-15); BUN 14 mg/dL (7-18); BUN/Creat Ratio 10.8 RATIO (10-20); Bilirubin, Direct 0.12 mg/dL (0.00-0.30); Calcium,Total 8.5 mg/dL (8.5-10.1); Chloride 99 mmol/L (98-107); Cholesterol 104 mg/dL (200); EST Glomerular Filtration Rate 60 mL/min (>60); Est Glom Filt Rate - Afr Amer 72 mL/min (>60); Globulin 3.5 g/dL (2.2-4.2); Glucose 144 mg/dL (74-106); High Density Lipoprotein 44 mg/dL; Potassium 4.4 mmol/L (3.5-5.1); Protein, Total 6.9 g/dL (6.4-8.2); Sodium Level 131 mmol/L (136-145); Triglycerides 165 mg/dL; Very Low Density Lipoprotein 33 mg/dL (5-40)
== END | disposition home or self-care (01) ==
LOC: LAB 10:53
PROVIDERS: PCP Family Medicine; Visit Provider Nurse Practitioner Family
DX: E78.00 Pure hypercholesterolemia, unspecified (principal); I10 Essential (primary) hypertension; I25.10 Atherosclerotic heart disease of native coronary artery without angina pectoris
CPT/HCPCS: 36415; 80053; 80061; 82248

== ENCOUNTER 2024-05-23 12:44 | Emergency (ER) | payer MEDICARE, SELFPAY ==
[2024-05-23] VITALS (7 sets, daily range): BP systolic 119–171; BP diastolic 58–101; PULSE 75–88; RESP 14–18; TEMP 36.6–37.2; O2SAT 97–100; BMI 27.7
--- NOTE | 2024-05-23 12:51 | ED.RN ---
Pt said he was around his mother who had pneumonia; he believes he has it now too.
--- NOTE | 2024-05-23 12:54 | EKG12_ITS ---
Test Reason : CP Blood Pressure : / mmHG Vent. Rate : 076 BPM Atrial Rate : 076 BPM P-R Int : 184 ms QRS Dur : 068 ms QT Int : 368 ms P-R-T Axes : 076 072 063 degrees QTc Int : 414 ms Normal sinus rhythm Cannot rule out Anterior infarct , age undetermined Abnormal ECG Confirmed by ENRIQUE OROPEZA, LEXII ([id number]), photograph editor YANIRA BUSTILLOS ([id number]) on 05/25/2024 8:31:32 AM Referred By: Confirmed By:LEXII NUNEZ MD
--- NOTE | 2024-05-23 12:55 | EDS_ITS ---
HPI History of Present Illness Chief Complaint: Shortness of Breath Narrative Narrative: Patient is a 59-year-old male with past medical history hypertension, CAD with stent, hyperlipidemia, tobacco use who presented to the emergency department with chief complaint of lung pain patient states that he had been around his mother who has been sick with pneumonia and feels that he may now have pneumonia. He notes that last week he was not feeling well had some nausea vomiting diarrhea however this is since resolved. He states that if he takes a deep breath that seems to bother his lungs the most. He also complains of some shortness of breath associated with this. He denies any recent travels any history of blood clots. 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 COPD Tobacco dependence Chest pain in adult Chronic neck and back pain Home Medications ?Medication ?Instructions ?Recorded ?Last Taken ?Type aspirin 81 mg tablet,delayed 81 mg PO DAILY 01/13/24 Unknown History release lisinopril 40 mg tablet 40 mg PO DAILY blood pressure #90 01/13/24 Unknown Rx tabs pyridoxine (vitamin B6) 100 mg 100 mg PO DAILY 01/13/24 Unknown History tablet rosuvastatin 40 mg tablet 40 mg PO QHS #90 tabs 01/13/24 Unknown Rx metoprolol tartrate 25 mg tablet 25 mg PO BID #180 tabs 04/16/24 Unknown Rx Allergy/AdvReac Type Severity Reaction Status Date / Time ticagrelor (From Brilinta) AdvReac Intermediate SOB, easy Verified 05/23/24 12:55 bleeding atorvastatin AdvReac Unknown Myalgias Verified 05/23/24 12:55 Family History Father CAD (coronary artery disease) CABG twice with first in his 50s Mother Diabetes Hypertension Surgical History Atherosclerosis of coronary artery of [place] heart without angina pectoris History of coronary artery stent placement (08/14/20) History of spinal surgery Presence of coronary angioplasty implant and graft (~08/14/20) Social History (Updated 01/13/24 @ 09:07 by Anastasiya Avalos) Smoking Status: Heavy Smoker (>10/day) quit status: has quit before alcohol intake: current alcohol intake frequency: 3 or more drinks per day Alcohol type: beer substance use type: does not use caffeine: Yes Type: coffee Number of servings: 4 ROS ROS ED ROS Narrative Constitutional: Denies headaches, Bean, dizziness, fevers, chills Eyes: Denies change with double vision blurry vision Cardiovascular: Denies chest pain or palpitations Respiratory: Complains of lung pain as noted above and some shortness of breath denies coughing or wheezing Abdomen: Denies abdominal pain nausea vomit diarrhea Neurological: Denies numbness, weakness, tingling Skin: Denies rashes or lesions EXAM Physical Exam Narrative Exam Narrative: General: Patient lying in bed rest comfortably did not appear to be in acute distress Head: Atraumatic, normocephalic Neck: Soft, supple, trachea midline Eyes: Pupils equal round reactive to light bilaterally, extraocular muscles intact bilaterally, no conjunctival injection noted Cardiovascular: Regular rate and rhythm no murmurs gallops rubs noted Respiratory: Clear to auscultation bilaterally no rales rhonchi wheeze noted Abdomen: Soft, nondistended, nontender to palpation, bowel sounds present for Extremities: +5/5 strength noted in the bilateral upper and lower extremities, no pedal edema neuroexam Neurological: Patient following commands knew that he was at [facility] year is 2023 Skin: Warm, dry, intact Const Vital Signs: 05/23/24 12:44 05/23/24 12:48 05/23/24 12:54 Temperature 99 F Temperature Source Temporal Pulse Rate 78 Respiratory Rate 14 Respiratory Effort Splinting Respiratory Depth Shallow Blood Pressure 152/100 H Blood Pressure Mean 117 Pulse Ox 98 99 Oxygen Delivery Method Room Air Room Air Room Air 05/23/24 14:44 05/23/24 16:00 05/23/24 18:00 Temperature Temperature Source Pulse Rate 75 87 88 Respiratory Rate 17 16 16 Respiratory Effort Respiratory Depth Blood Pressure 167/83 H 119/58 L 164/89 H Blood Pressure Mean 111 78 114 Pulse Ox 100 97 98 Oxygen Delivery Method Room Air Room Air Room Air MDM MDM MDM Narrative Medical decision making narrative: Patient is a 59-year-old male who presented to the emergency department chief complaint of lung pain. Patient will have workup performed. Differential diagnose includes but not limited to ACS, pneumonia, upper respiratory infection second to viral etiology, pneumothorax. Once workup is obtained reviewed he will be reevaluated. Patient CBC reviewed and showed no evidence of leukocytosis white blood count was normal at 7.8, hemoglobin stable at 16.2, plate count 173. Patient sodium was only 132, potassium normal at 4.3, creatinine was 1.29, patient's troponin was noted to be 5 with a delta troponin obtained and is noted be 5 as well. Patient's proBNP was noted be 98. Patient's chest x-ray was reviewed and showed no acute thoracic pathology. Given the fact that the patient is having pain with deep inspiration did add on a D-dimer which was noted to be elevated to 0.[address] angiography of the chest was added on as well. Patient CTA of the chest showed no evidence of pulmonary embolism there is no evidence of aortic dissection or aneurysm. Normal appearance of the heart and pericardium moderate to extensive coronary vascular calcifications noted. No pulm infiltrate consolidation or effusion noted. Abdomen was within normal limits. Patient's EKG was reviewed as well and showed sinus rhythm with a rate of 76 bpm Did discuss the results with the patient at bedside and he would like to go home at this point time. Patient states that he will make an appointment with his primary care physician follow-up with them in the outpatient setting. Patient was encouraged return with worsening symptoms or other concerns he is agreeable this plan is discharged home in stable condition. Lab Data Labs: Laboratory Results - last 24 hr 05/23/24 05/23/24 12:55 15:14 WBC 7.8 RBC 5.19 Hgb 16.2 Hct 46.8 MCV 90.2 MCH 31.2 MCHC 34.6 RDW Std Deviation 42.4 RDW Coeff of Padmini 12.9 Plt Count 173 MPV 8.9 Immature Gran % (Auto) 0.300 Neut % (Auto) 70.9 H Lymph % (Auto) 17.4 L [place] % (Auto) 9.2 Eos % (Auto) 1.4 Baso % (Auto) 0.8 Absolute Neuts (auto) 5.5 Absolute Lymphs (auto) 1.36 Nucleated RBC % 0 D-Dimer Quant (PE/DVT) 0.64 H* Sodium 132 L Potassium 4.3 Chloride 99 Carbon Dioxide 27.0 Anion Gap 6 BUN 14 Creatinine 1.29 Estim Creat Clear Calc 59.84 Est GFR (MDRD) Af Amer 73 Est GFR (MDRD) Non-Af 60 BUN/Creatinine Ratio 10.9 Glucose 109 H Calcium 9.0 Troponin I High Sens 5 5 B-Natriuretic Peptide 98.1 Radiography Diagnostic Testing: Clinical Impression(s) from Imaging Studies Chest X-Ray 05/23/24 13:05 IMPRESSION: No acute thoracic pathology. Electronically Signed: Vincenzo Crane MD at 13:32 EDT , Chest CTA 05/23/24 16:32 IMPRESSION: undefined Discharge Plan Triage Chief Complaint: Shortness of Breath ED Provider: David Higgins Dx/Rx/DC Orders Clinical Impression: Chest pain Prescriptions: No Action aspirin 81 mg tablet,delayed release (DR/EC) 81 mg PO DAILY pyridoxine (vitamin B6) 100 mg tablet 100 mg PO DAILY lisinopril 40 mg tablet 40 mg PO DAILY Qty: 90 3RF rosuvastatin 40 mg tablet 40 mg PO QHS Qty: 90 3RF metoprolol tartrate 25 mg tablet 25 mg PO BID Qty: 180 3RF Primary Care Provider: Saran Landry Referrals: Saran Landry DO [Primary Care Provider] - Activity Restrictions/Additional Instructions: Follow-up with your primary care physician in 2 to 3 days. Return for worsening symptoms or any other concerns. Print Language: Estonian Disposition Disposition: Home, Self Care
[2024-05-23] MEDS: 0.9% Normal Saline (1000mL) 1,000 ML 150 ML IV ×2 (13:00→18:52)
[2024-05-23 13:04] LABS: Absolute Lymphocyte Count 1.36 X10^3/uL (0.83-4.51); Absolute Neutrophil Count 5.5 X10^3/uL (2.0-7.7); Basophil# 0.06 X10^3/uL; Basophil% 0.8 % (0-1); Eosinophil# 0.11 X10^3/uL; Eosinophils% 1.4 % (0-5); Hematocrit 46.8 % (40-54); Hemoglobin 16.2 g/dL (13.0-16.5); Lymphocyte # 1.36 X10^3/ul (0.83-4.51); Lymphocyte % 17.4 % (19-41); Mean Corp Hgb Conc 34.6 g/dL (32-36); Mean Corpuscular Hgb 31.2 pg (27.0-32.0); Mean Corpuscular Volume 90.2 fL (80-94); Mean Platelet Vol. 8.9 fl (6.2-12.0); Monocyte# 0.72 X10^3/uL; Monocyte% 9.2 % (0-10); NRBC Flagged by Analyzer 0 % (0-5); Neutrophil # 5.53 X10^3/uL (2.7-7.7); Neutrophil % 70.9 % (47-70); Platelet Count 173 K/mm3 (150-450); RBC Distribution Width CV 12.9 % (11.6-14.6); RBC Distribution Width SD 42.4 fl (35.1-43.9); Red Blood Count 5.19 M/mm3 (4.6-6.2); White Blood Count 7.8 K/mm3 (4.4-11.0)
--- NOTE | 2024-05-23 13:05 | RAD_ITS ---
STUDY: X-RAY CHEST REASON FOR EXAM: Male, 59 years old. Chest pain TECHNIQUE: Frontal and lateral views of the chest COMPARISON: 09/22/2020 FINDINGS: The lungs are hyperinflated, but clear. There are no pleural effusions. There is no pneumothorax. The heart is normal in size. The visualized osseous structures are within normal limits. RAD/Chest PA and Lateral IMPRESSION: No acute thoracic pathology. Electronically Signed: Vincenzo Crane MD at 13:32 EDT ,
[2024-05-23 13:28] LABS: BNP,B-Type NATRIURETIC PEPTIDE 98.1 pg/mL (0-100)
[2024-05-23 13:29] LABS: Anion Gap 6 (5-15); BUN 14 mg/dL (7-18); BUN/Creat Ratio 10.9 RATIO (10-20); Chloride 99 mmol/L (98-107); Creatinine, Serum 1.29 mg/dL (0.70-1.30); EST Glomerular Filtration Rate 60 mL/min (>60); Est Glom Filt Rate - Afr Amer 73 mL/min (>60); Estimated Creatinine Clearance 59.84 ml/min; Glucose 109 mg/dL (74-106); Potassium 4.3 mmol/L (3.5-5.1); Sodium Level 132 mmol/L (136-145); Troponin-I HS (w/2H Reflex) 5 pg/mL (3.0-78.0)
[2024-05-23 14:59] LABS: Reflex Troponin-HS? (from REC) Y
[2024-05-23 16:07] LABS: Troponin-I HS 5 pg/mL (3.0-78.0)
[2024-05-23 16:18] LABS: D-Dimer Quantitative (DVT/PE) 0.64 FEU/ug/m (0.27-0.49)
--- NOTE | 2024-05-23 16:32 | CT_ITS ---
STUDY: CTA CHEST REASON FOR EXAM: Male, 59 years old. SOB RADIATION DOSAGE (If Supplied By Facility): CTDIvol = ( 9.58 ) mGy, DLP = ( 488.65 ) mGycm TECHNIQUE: The examination was performed with the intravenous administration of IV 100mL Isovue-370. Post-processing of the angiographic images was performed, with multiplanar reformation and 3D reconstruction. Individualized dose optimization techniques were used for this CT. COMPARISON: None. FINDINGS: Tubes and lines: 1. No life-support noted. CTA: PULMONARY ARTERIES: There is normal configuration and contrast opacification of pulmonary outflow tract, main pulmonary arteries, segmental and intersegmental pulmonary arteries bilaterally without evidence of intraluminal filling defects. AORTIC ARCH: The aortic arch and descending aorta have normal configuration. No evidence of dissection or aneurysmal dilatation. HEART: Cardiac contour is normal. No evidence pericardial effusion. Diffuse coronary vascular calcifications are present. CT CHEST: LUNGS: [Mild interstitial prominence in the periphery of the lower lung zones bilaterally. No parenchymal infiltrate consolidation or effusion.. No mass. No consolidation. PLEURAL SPACES: Unremarkable, no effusion or pneumothorax.. MEDIASTINUM AND LYMPH NODES: Unremarkable. No significant adenopathy. BONES: Unremarkable ABDOMEN: Within normal limits. Other: None IMPRESSIONS: 1. No CTA evidence of pulmonary embolism. 2. No CTA evidence of aortic aneurysm or dissection 3. Normal CT appearance of the heart and pericardium. Moderate to extensive coronary vascular calcifications. 4. No pulmonary infiltrate consolidation or effusion. Interstitial prominence however in the periphery of the lower lung zones greater on the LEFT. Pattern may be chronic in nature. Electronically Signed: David Ward MD at 17:23 EDT , CT/CTA Chest W/WO Contrast IMPRESSION: undefined
== END 2024-05-23 19:55 | disposition home or self-care (01) ==
PROVIDERS: Emergency Provider Emergency Medicine; PCP Family Medicine; Visit Provider Emergency Medicine
DX: R07.9 Chest pain, unspecified (principal); R06.02 Shortness of breath; I25.10 Atherosclerotic heart disease of native coronary artery without angina pectoris; I10 Essential (primary) hypertension; F17.200 Nicotine dependence, unspecified, uncomplicated; Z95.5 Presence of coronary angioplasty implant and graft; Z79.82 Long term (current) use of aspirin; Z79.899 Other long term (current) drug therapy
CPT/HCPCS: 71046; 71275; 80048; 83880; 84484; 85025; 85379; 93005; 96360; 96361; 99284; J7030; Q9967; A4216

== ENCOUNTER → 2024-06-16 | Outpatient (CLI) | payer MEDICARE, SELFPAY ==
--- NOTE | 2024-06-16 08:41 | ART_ITS ---
Reason For Study: ATHEROSCLEROSIS OF [place] ARTERIES WITH CLAUDICATION Left Segmental Pressures Left brachial= 114mmHg. Left posterior tibial artery = 75mmHg. Left dorsalis pedis artery = 95mmHg. Left digit = 56 mmHg. The left posterior tibial artery waveforms are biphasic. The left dorsalis pedis waveforms are triphasic. Right Segmental Pressures Right brachial= 111mmHg. Right posterior tibial artery = 64mmHg. Right dorsalis pedis artery = 68mmHg. Right digit = 38 mmHg. The right posterior tibial artery waveforms are monophasic. The right dorsalis pedis waveforms are monophasic. Indices The right resting ankle brachial index is 0.60. The right ankle brachial index by the posterior tibial artery is 0.56. The right ankle brachial index by the dorsalis pedis is 0.60. The right digital-brachial index is 0.33. The left resting ankle brachial index is 0.83. The left ankle brachial index by the posterior tibial artery is 0.66. The left ankle brachial index by the dorsalis pedis is 0.83. The left digital-brachial index is 0.49. VL/Ankle Brachial Index Interpretation Summary Right ANNAMARIA 0.6, moderate arterial insufficiency. Doppler/PVR waveforms of the ri ght ankle moderately diminished at rest. Left ANNAMARIA 0.83, moderate arterial insufficiency. Doppler/PVR waveforms of the le ft ankle moderately diminished at rest. Ordering Physician: Nima Landry Referring Physician: NIMA LANDRY DO Performed By: Beulah Rowe RVCriss, RDCS
== END | disposition home or self-care (01) ==
PROVIDERS: PCP Family Medicine; Referring Provider Family Medicine; Visit Provider Family Medicine
DX: I70.213 Atherosclerosis of native arteries of extremities with intermittent claudication, bilateral legs (principal)
CPT/HCPCS: 93922

== ENCOUNTER → 2024-10-08 | Outpatient (CLI) | payer MEDICARE, SELFPAY ==
--- NOTE | 2024-10-08 07:46 | CT_ITS ---
EXAM: CT ANGIOGRAPHY ABDOMEN AND PELVIS WITH RUNOFF TO THE LOWER EXTREMITIES WITH INTRAVENOUS CONTRAST CLINICAL INDICATION: atherosclerosis lower extremities w claudication TECHNIQUE: Helically acquired angiography images were obtained of the abdomen, pelvis and lower extremities with intravenous contrast using CTA runoff protocol. This CT exam was performed using one or more of the following dose reduction techniques: automated exposure control, adjustment of the mA and/or kV according to patient size, and/or use of iterative reconstruction technique. MIP reconstructed images were created and reviewed. CONTRAST: 100 cc of Isovue-370 IV. RADIATION DOSE: CTDIvol = 8.39 mGy, DLP = 1205.26 mGy-cm COMPARISON: No relevant prior studies available. FINDINGS: VASCULATURE: AORTA: Moderate atherosclerotic calcifications of the infrarenal abdominal aorta without aneurysm. No occlusion or significant stenosis. No dissection. CELIAC TRUNK AND MESENTERIC ARTERIES: No acute findings. No occlusion or significant stenosis. No dissection. RENAL ARTERIES: No acute findings. No occlusion or significant stenosis. No dissection. RIGHT ILIAC ARTERIES: Moderate atherosclerotic calcifications of the right common iliac artery without edematous arytenoid stenosis. RIGHT FEMORAL/POPLITEAL ARTERIES: Severe diffuse atherosclerotic calcifications right superficial femoral artery with high-grade stenosis distally. Moderate atherosclerotic calcifications right common femoral artery with less than 50% diameter stenosis. Moderate atherosclerotic calcifications right popliteal artery with less than 50% diameter stenosis. RIGHT CALF/FOOT ARTERIES: Nonvisualization of the distal right peroneal and anterior tibial arteries probably due to timing of contrast bolus. No occlusion or significant stenosis. LEFT ILIAC ARTERIES: Moderate atherosclerotic calcifications left common iliac artery without hemodynamically significant stenosis. LEFT FEMORAL/POPLITEAL ARTERIES: Moderate atherosclerotic calcifications left common femoral artery with greater than 50% diameter stenosis. Multiple segmental stenoses left superficial femoral artery with probable greater than 50% diameter stenosis distally. Moderate atherosclerotic calcifications left popliteal artery with greater than 50% diameter stenosis. LEFT CALF/FOOT ARTERIES: Nonvisualization of the distal left anterior tibial and peroneal arteries probably due to timing of contrast bolus. No occlusion or significant stenosis. LOWER THORAX: Unremarkable. Lung bases are clear. No cardiomegaly. No significant pericardial effusion. ABDOMEN: LIVER: Unremarkable. Homogeneous. No focal mass. GALLBLADDER AND BILE DUCTS: Unremarkable. No calcified gallstones. No gallbladder distention or wall edema. No intra- or extrahepatic biliary ductal dilation. PANCREAS: Unremarkable. No focal cystic or solid mass. SPLEEN: Unremarkable. Normal size without focal cystic or solid mass. ADRENALS: Unremarkable. No nodules. KIDNEYS AND URETERS: Unremarkable. Normal renal size and position. No hydronephrosis. STOMACH AND BOWEL: Unremarkable. No stomach or bowel distention. No focal inflammatory change. PELVIS: APPENDIX: No evidence of acute appendicitis. BLADDER: Unremarkable. REPRODUCTIVE: Unremarkable as visualized. No mass. ABDOMEN, PELVIS and LOWER EXTREMITIES: INTRAPERITONEAL SPACE: Unremarkable. No ascites or other fluid collection. No free air. BONES/JOINTS: Unremarkable. No suspicious lytic or blastic abnormality. SOFT TISSUES: Unremarkable. No discrete abdominal or pelvic wall hernia. LYMPH NODES: Unremarkable. No enlarged lymph nodes. CT/CTA Abd w/Runoff W/WO Contrast IMPRESSION: 1. Moderate atherosclerotic calcifications left common femoral artery with greater than 50% diameter stenosis. 2. Multiple segmental stenoses left superficial femoral artery with probable greater than 50% diameter stenosis distally. 3. Moderate atherosclerotic calcifications left popliteal artery with greater than 50% diameter stenosis. 4. Severe diffuse atherosclerotic calcifications right superficial femoral artery with high-grade stenosis distally. 5. Nonvisualization of the distal right peroneal and anterior tibial arteries probably due to timing of contrast bolus. 6. Nonvisualization of the distal left anterior tibial and peroneal arteries probably due to timing of contrast bolus. Electronically Signed: Aleksandr Chaudhry MD at 1:29 EST ,
[2024-10-08 08:17] LABS: CREATININE FINGERSTICK 1.6 mg/dL (0.70-1.30)
== END | disposition home or self-care (01) ==
LOC: CT 07:46
PROVIDERS: PCP Family Medicine; Referring Provider Physician Assistant; Visit Provider Physician Assistant
DX: I70.211 Atherosclerosis of native arteries of extremities with intermittent claudication, right leg (principal)
CPT/HCPCS: 75635; Q9967